=== PATIENT | female | born 1970 | race Caucasian/White ===

== ENCOUNTER 2023-04-29 15:29 | Outpatient (CLI) | payer OTHER, SELFPAY ==
--- NOTE | 2023-05-02 15:45 | WPDHOLTEREM ---
Holter/Event Monitor Holter/Event Monitor Date of procedure: 04/29/23 Holter/Event Procedure: 48 Hr Holter Monitor Indications: Palpitations Conclusion: 1. 48 hour holter monitored on 04/29/23. 2. Underlying rhythm is sinus rhythm. HR range 46-117 bpm; average HR 68 bpm. 3. There are 51 premature supraventricular complexes and 1 supraventricular couplet. No supraventricular tachycardia. 4. There are 6 premature ventricular complexes. No ventricular tachycardia. 5. No sinoatrial or atrioventricular blocks. No significant pauses greater than 2 seconds. 6. Patient reports symptoms of palpitations, headache, funny feeling in chest which demonstrate sinus rhythm, HR range 53-90 bpm.
== END 2023-04-29 15:30 | disposition home or self-care (01) ==
DX: R00.2 Palpitations (principal)
CPT/HCPCS: 93225; 93226

== ENCOUNTER 2024-12-03 01:47 | Day surgery (SDC) | payer OTHER, SELFPAY ==
[2024-11-23 13:27] VITALS: BMI 25.6
--- OUTSIDE RECORDS SUMMARY | 2024-12-03 01:50 | XMS_ITS | Encounter Summary ---
Author Organization [facility] Address [address] [place] [address] Care Team Providers Care Demi Chef Name Role Phone Unavailable Primary Care Provider Unavailabl e Encounter Details Date Type Department Care Team (Late st Contact Info) Description 04/26/2023 Lab Requisition [facility] - DermPath Lab [address] [facility], [place] [address] Ericka Claire DO [address] [facility] 3 [place] [address] Social History Tobacco Use Types Packs/Day Years Used Date Smoking Tobacco: Never Assessed Comments Unknown Sex and Gender Information Value Date Recorded Sex Assigned at Not on file 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 Gender Identity Not on file Sexual Orientation Not on file documented as of this encounter Plan of Treatment Not on file documented as of this encounter Procedures Procedure Name Priority Date/Time Associated Diagnosis Comments DERMATOPATHOLOGY Routine 04/26/2023 2:28 PM CDT documented in this encounter Results * DERMATOPATHOLOGY (04/26/2023 2:28 PM CDT) Case Report Dermatopathology Report Case: [id number] Authorizing Provider: Ericka Claire DO Collected: 04/26/2023 02:28 PM Ordering Location: [facility] DermPath Lab Received: 04/27/2023 11:53 AM Pathologist: Susanne Richardson MD Specimen: Skin, right nose 11:32 AM CDT DERMATOPATHOLOGY LABORATORY Final Diagnosis Specimen A. SKIN, right nose: BASAL CELL CARCINOMA, NODULAR TYPE (C44.311) 11:32 AM CDT DERMATOPATHOLOGY LABORATORY at 1132 CDT Clinical History R/O BCC< SCC, [place] 11:32 AM CDT DERMATOPATHOLOGY LABORATORY Gross Description Specimen A: Received is one formalin filled container labeled with the patient's name and designated right nose. The specimen consists of a shave biopsy measuring 3x3x1 mm. Jar 0. 11:32 AM T DERMATOPATHOLOGY LABORATORY Microscopic Description Specimen A. SKIN, right nose: Within the dermis there are aggregates of basaloid cells with a high nuclear to cytoplasmic ratio and peripheral palisading. 11:32 AM T DERMATOPATHOLOGY LABORATORY Disclaimer An external and internal positive and negative controls are appropriate for the histochemical, immunohistochemical and immunofluorescence stain(s) in this case (if any), except where stated explicitly. The performance characteristics of the stain(s) cited in this report were developed and its performance characteristic determined by the Dermatopathology Laboratory at [facility], directed by Dr. Clement Kasper. These tests need not be, and therefore are not, approved by the [place] Food and Drug Administration. The tests are used for clinical purposes. Billing Codes Specimen Charges Stain Charges 21308 1 11:32 AM CDT DERMATOPATHOLOGY LABORATORY Embedded Images 11:32 AM CDT DERMATOPATHOLOGY LABORATORY Pathology/Cytolo gy TISSUE SPECIMEN FROM SKIN / Unknown 04/26/2023 2:28 PM CDT 04/27/2023 11:53 AM CDT us Ericka Claire DO LAB - PATHOLOGY/CYTOLOGY ORDERABLES Final Result DERMATOPATHOLOGY LABORATORY [facility] - Department of Dermatology [address], [address] [phone] documented in this encounter Visit Diagnoses Not on filedocumented in this encounter
--- OUTSIDE RECORDS SUMMARY | 2024-12-03 01:50 | XMS_ITS | Clinical Summary ---
Author Organization [facility] [employer] Address [address] [facility] [place] [address] Care Team Providers Care College And Career Counselor Name Role Phone Unavailable Primary Care Provider Unavailabl e Source Comments [facility] [employer],non-owned Affiliates and Associated Physician Practices is amultiple site organization consisting of ambulatory clinics and hospital sitesin [place], [place], [place] and [place]. This disclosure is being madepursuant to the Care Everywhere program and may not contain all information available regarding this patient. 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 Gender Identity Not on file Sexual Orientation Not on file Plan of Treatment Health Maintenance Due Date Last Done Comments COLOGUARD (AGES 45-75) - COL ON CA SCREENING 1972 COLON MONITORING 1972 COLONOSCOPY - COLON CA SCREENING 1972 CT COLONOGRAPHY - COLON CA SCREENING 1972 Colorectal Cancer Screening 1972 FIT - COLON CA SCREENING 1972 FLEX SIG - COLON CA SCREENING 1972 LIPID TESTING 1972 MAMMOGRAM 1972 PAP SMEAR 1972 HIV SCREENING 1987 HEPATITIS C SCREENING 07/15/1990 DTAP/TDAP/TD VACCINES (1 - Tdap) 1991 HEPATITIS B VACCINE (1 of 3 - 19+ 3-dose series) 1991 PNEUMOCOCCAL VACCINE 50+ (1 of 1 - PCV) 2022 ZOSTER VACCINE (1 of 2) 2022 COVID-19 VACCINE ( - 2023-2 5 season) 2024 DEPRESSION SCREENING 07/04/2024 INFLUENZA VACCINE (Season Ended) 2025 HIB VACCINE Aged Out No longer eligi ble based on patient's age to complete this topic HPV VACCINE Aged Out No longer eligi ble based on patient's age to complete this topic MENINGOCOCCAL (Group B) VACC INE SHARED DECISION-MAKING Aged Out No longer eligibl e based on patient's age to complete this topic MENINGOCOCCAL GROUPS A/C/Y/W VACCINE Aged Out No longer eligible b ased on patient's age to complete this topic Insurance Member Subscriber Plan / Payer (Ef fective 2018-Present) Name:Vinicius Brown Relation to Subscriber:Self Name:VINICIUS BROWN Payer ID:[id number] (NAIC) Type:[employer] Address: [place] [id number] [place] [id number] [facility] [place] [phone]
--- OUTSIDE RECORDS SUMMARY | 2024-12-03 01:50 | XMS_ITS | Encounter Summary ---
Author Organization [facility] Address [address] [facility] [place] [address] Care Team Providers Care Print Developer Name Role Phone Unavailable Primary Care Provider Unavailabl e Encounter Details Date Type Department Care Team (Late st Contact Info) Description 06/13/2019 Lab Requisition [facility] DermPath Lab [address] 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 Gender Identity Not on file Sexual Orientation Not on file documented as of this encounter Plan of Treatment Not on file documented as of this encounter Procedures Procedure Name Priority Date/Time Associated Diagnosis Comments DERMATOPATHOLOGY Routine 06/12/2019 12:0 0 AM TUBE WORKER documented in this encounter Results * DERMATOPATHOLOGY (06/12/2019 12:00 AM TUBE WORKER) Case Report Dermatopathology Report Case: [id number] Authorizing Provider: Travon Gaines MD Collected: 06/12/2019 12:00 AM Ordering Location: [facility] DermPath Lab Received: 06/13/2019 11:32 AM Pathologist: Cris Kasper MD Specimens: A) - Skin, mid abdomen B) - Skin, left lower pretibia 9 5:17 PM TUBE WORKER DERMATOPATHOLOGY LABORATORY Final Diagnosis Specimen A. SKIN, mid abdomen: LENTIGINOUS MELANOCYTIC NEVUS, COMPOUND TYPE, IRRITATED AND INFLAMED (COMPOUND MELANOCYTIC NEVUS WITH ARCHITECTURAL DISORDER) (D22.5) Specimen B. SKIN, left lower pretibia: BENIGN VERRUCOUS KERATOSIS, INFLAMED (L82.1) 9 5:17 PM [facility] DERMATOPATHOLOGY LABORATORY at [address] [facility] Clinical History A-B: R/O dys nevus. 9 5:17 PM [facility] DERMATOPATHOLOGY LABORATORY Gross Description Specimen A: Received is one formalin filled container labeled with the patient's name and designated mid abdomen. The specimen consists of a shave biopsy measuring [id number]. Jar 0. Specimen B: Received is one formalin filled container labeled with the patient's name and designated left lower pretibia. The specimen consists of a shave biopsy measuring [id number]. Jar 0. 5:17 PM [facility] DERMATOPATHOLOGY LABORATORY Microscopic Description Specimen A. SKIN, mid abdomen: This is a compound nevus. There is melanin pigment in the stratum corneum. There is architectural disorder characterized by a lentiginous proliferation of melanocytes between irregular nests of cells along the dermal-epidermal junction, highlighted by MART-1/Melan-A immunohistochemical staining. There is underlying fibroplasia of the papillary dermis. The intradermal component is bland appearance and matures with depth. There is a lymphohistiocytic infiltrate within the dermis. Original and deeper sections were reviewed. (Compound Danny's Nevus or Compound Dysplastic Nevus) Specimen B. SKIN, left lower pretibia: Sections show hyperkeratosis, papillomatosis, hypergranulosis, and acanthosis. Inflammatory cells are present within the dermis. These histological findings can be seen in a verruca vulgaris or a seborrheic keratosis. 5:17 PM [facility] DERMATOPATHOLOGY LABORATORY Disclaimer An external and internal positive and negative controls are appropriate for the histochemical, immunohistochemical and immunofluorescence stain(s) in this case (if any), except where stated explicitly. The performance characteristics of the stain(s) cited in this report were developed and its performance characteristic determined by the Dermatopathology Laboratory at [facility], directed by Dr. Clement Kasper. These tests need not be, and therefore are not, approved by the [place] Food and Drug Administration. The tests are used for clinical purposes. Billing Codes Specimen Charges Stain Charges 58143 53393 1 1 95350 1 9 5:17 PM [facility] DERMATOPATHOLOGY LABORATORY Embedded Images 12/13/201 9 5:17 PM TUBE WORKER DERMATOPATHOLOGY LABORATORY Pathology/Cytology TISSUE SPECIMEN FROM SKIN / Unknown 06/12/2019 06/13/2019 11:32 AM TUBE WORKER Miscellaneous samples (specimen) TISSUE SPECIMEN FROM SKIN / Unknown 06/12/2019 06/13/2019 11:32 AM TUBE WORKER us Travon Gaines MD LAB - PATHOLOGY/CYTOLOGY ORD ERABLES Final Result DERMATOPATHOLOGY LABORATORY [facility] - Department of Dermatology [address] [place] [address], 5th Floor Lab [address] [phone] documented in this encounter Visit Diagnoses Not on filedocumented in this encounter
--- OUTSIDE RECORDS SUMMARY | 2024-12-03 01:50 | XMS_ITS | Encounter Summary ---
Author Organization [facility] Address [address] [place] [address] Phone Care Team Providers Care Production Team Leader Name Role Phone Long Beard MD Unavailable Shrala Robertson DO Unavailable [phone] Mamie Broussard MD Unavailable [phone] Michael Mercado DO Unavailable [phone] Travon Gaines MD Unavailable [phone] Alida HOPKINS MD, Lebron Patino Unavailable Delia Lu NP Primary Care Provider [phone] Encounter Details Date Type Department Care Team (Latest Contact Info) Description 12/13/2023 Orders Only [facility]/WRIST Scanning, Provider Social History Tobacco Use Types Packs/Day Years Used Date Smoking Tobacco: Never Passive Smoke Exposure: Never Smokeless Tobacco: Never Alcohol Use Standard Drinks/Week Comments Yes 0 (1 standard drink = 0.6 oz pur e alcohol) PHQ-2 Answer Date Recorded PHQ-2 Total Score (If total score is 3 or more points, staff should administer the PHQ-9) 0 11/11/2021 Personal Safety Answer Date Recorded Have you ever been in or are you currently in a harmful physical or emotional relationship or is someone making you feel afraid or unsafe? 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 Not on file Not on file documented as of this encounter Plan of Treatment Not on file documented as of this encounter Procedures Procedure Name Priority Date/Time Associated Diagnosis Comments SCAN - RADIOLOGY/IMAGING 12/13/2023 documented in this encounter Results * SCAN - RADIOLOGY/IMAGING (12/13/2023) Anatomical Region Laterality Modality Other us Provider Scanning Edited Result - Final documented in this encounter Visit Diagnoses Not on filedocumented in this encounter Care Teams Production Team Leader Relationship Specialty Start Date End Date Delia Lu NP [address] [place] [address] PCP - General Family Medicine 05/18/23 Long Beard MD [address] [facility] [address] [place] [address] Referring Physician Cardiovascular Disease 02/06/18 Sharla Robertson DO [address] [place] [address] Consulting Physician Obstetrics and Gynecology 02/06/18 Mamie [place] [id number] [place] [address] Consulting Physician Gastroenterology 02/06/18 Michael Mercado DO [address] [place] [address] Referring Physician Optometry 02/06/18 Travon Gaines MD [address] [place] [address] Referring Physician Dermatology 02/06/18 Lebron Irwin IV, MD [address] [place] [address] Surgeon Orthopedic Surgery 06/23/20 documented as of this encounter
--- OUTSIDE RECORDS SUMMARY | 2024-12-03 01:50 | XMS_ITS | Encounter Summary ---
Author Organization [facility] Address [address] [place] [address] Care Team Providers Care Cutter Out Name Role Phone Long Beard MD Unavailable [phone] Sharla Robertson DO Unavailable [phone] Mamie Broussard MD Unavailable [phone] Michael Mercado DO Unavailable [phone] Travon Gaines MD Unavailable [phone] Alida HOPKINS MD, Lebron Patino Unavailable Delia Lu NP Primary Care Provider [phone] Encounter Details Date Type Department Care Team (Late st Contact Info) Description 11/02/2024 Telephone [facility] [address] [place] [address] Kenia Grayson, RT Social History Tobacco Use Types Packs/Day Years Used Date Smoking Tobacco: Never Passive Smoke Exposure: Never Smokeless Tobacco: Never Alcohol Use Standard Drinks/Week Comments Yes 0 (1 standard drink = 0.6 oz pur e alcohol) AUDIT-C Answer Date Recorded Frequency of Alcohol Consumption Not on file 03/19/2024 Q2: How many drinks containi ng alcohol do you have on a typical day when you are drinking? Patient does not drink Frequency of Binge Drinking Not on file 03/04 PHQ-2 Answer Date Recorded PHQ-2 Total Score (If total score is 3 or more points, staff should administer the PHQ-9) 0 11/11/2021 Personal Safety Answer Date Recorded Have you ever been in or are you currently in a harmful physical or emotional relationship or is someone making you feel afraid or unsafe? 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 Not on file documented as of this encounter Plan of Treatment Not on file documented as of this encounter Visit Diagnoses Not on filedocumented in this encounter Care Teams Cutter Out Relationship Specialty Start Date End Date Delia Lu NP [address] [place] [address] [address] [facility] [address] [place] [address] PCP - General Family Medicine 05/18/23 Long Beard MD [address] [place] [address] [address] [place] [address] Referring Physician Cardiovascular Disease 02/06/18 Sharla Robertson DO [address] [place] [id number] Consulting Physician Obstetrics and Gynecology 02/06/18 Mamie Broussard [place] [address] [place] [address] Consulting Physician Gastroenterology 02/06/18 Michael Mercado DO [address] [place] [place] [address] Referring Physician Optometry 02/06/18 Travon Gaines MD [address] [place] [address] Referring Physician Dermatology 02/06/18 Lebron Irwin IV, MD [address] [place] [address] Surgeon Orthopedic Surgery 06/23/20 documented as of this encounter
--- OUTSIDE RECORDS SUMMARY | 2024-12-03 01:50 | XMS_ITS | Continuity of Care Document ---
Author Organization [facility] Address [address] [facility] [address] [place] [address] Phone Care Team Providers Care Pathology Secretary Name Role Phone No Information Unavailable Unavailable Procedures Procedure Date Therapeutic Activities Neuromuscular Re-Ed Therapeutic Exercise Manual Therapy Therapeutic Activities Neuromuscular Re-Ed Manual Therapy Therapeutic Activities Therapeutic Exercise Neuromuscular Re-Ed Therapeutic Activities Therapeutic Exercise Neuromuscular Re-Ed Neuromuscular Re-Ed Progress Note Therapeutic Activities Therapeutic Exercise Therapeutic Activities Therapeutic Exercise Manual Therapy Neuromuscular Re-Ed Therapeutic Activities Therapeutic Exercise Neuromuscular Re-Ed Manual Therapy Therapeutic Activities Manual Therapy Therapeutic Exercise Neuromuscular Re-Ed Therapeutic Activities Therapeutic Exercise Manual Therapy Therapeutic Activities Therapeutic Exercise Neuromuscular Re-Ed Manual Therapy PT Evaluation Moderate Complexity Neuromuscular Re-Ed Therapeutic Activities Advance Directives Directive Yes / No Effective Date File Name No Information Encounters Encounter Description Practice Location Reason(s) For Visit Diagnoses Date Provider Providers Copied on Encounter [facility] [address], [id number], tel:[phone] No Information 4 No Information [facility] [address], [id number], tel:[phone] [place] No Information 1 2 Garrels Ksenia. . Referring Provider: Jacques Song, [address], [place], [place], [address]. tel:[phone] [facility], [id number], tel:[phone] [place] No Information 0 2 Garrels Ksenia. . Referring Provider: Jacques Song, [address], [place], [place], [address]. tel:[phone] [facility] [address], [id number], tel:[phone] [place] No Information Sep0 2 Garrels Ksenia. . Referring Provider: Jacques Song, [address], [place], [address]. tel:[phone] [facility], [id number], tel:[phone] [place] No Information 2 Garrels Ksenia. . Referring Provider: Jacques Song, [address], [place], [address]. tel:[phone] [facility], [id number], tel:[phone] [place] No Information 2 Garrels Ksenia. . Referring Provider: Jacques Song, [address], [place], [address]. tel:[phone] [facility] [facility] [place], [place], [id number], [place] tel:[phone] [place] No Information 2 Nunu Howe. [address] [facility], [address], [place], [address], [place]. tel:[phone] Referring Provider: Jacques Song, [address], [place], [address]. tel:[phone] [facility] [facility] [place], [place], [id number], [place] tel:[phone] [place] No Information 2 Garrels Ksenia. . Referring Provider: Jacques Song, [address], [place], [address]. tel:[phone] [facility] [facility], [place], [place], [id number], [place] tel:[phone] [place] No Information 2 Garrels Ksenia. . Referring Provider: Jacques Song, [address], [place], [address]. tel:[phone] [facility], [place], [place], [id number], [place] tel:[phone] [place] No Information 2 Garrels Ksenia. . Referring Provider: Jacques Song, [address], [place], [address]. tel:[phone] [facility] [facility] [address], [place], [place], [id number], [place] tel:[phone] [place] No Information 2 Garrels Ksenia. . Referring Provider: Jacques Song, [address], [place], [address]. tel:[phone] [facility] [place], [address] [facility] [address], [place], [place], [id number], tel:[phone] [place] No Information 2 Garrels Ksenia. . Referring Provider: Jacques Song, [address], [place], [address]. tel:[phone] Family History Family Member Type Diagnosis Age At Onset No Information Payers Payer name Insurance type Covered green party ID Authorbridgettea ayaz(s) [facility] [id number] Social History Type Description Quantity Date Captured Comments Sex Female Smoking Status No Information Chief Complaint And Reason For Visit No Information Reason For Referral Reason For Referral No Information History Of Present Illness Encounter Date Complaint History Of Prese nt Illness No Information Functional Status Date Functional Assessmen t No Information Instructions Date Instruction Additional Infor mation No Information Assessments Type Assessment Date No Information Patient Care Teams Name Effective Dates (start - stop) Status Members No Information
--- OUTSIDE RECORDS SUMMARY | 2024-12-03 01:50 | XMS_ITS | Data Portability ---
Author Organization [facility] JORJEEiatn Address [address] [place] [address] Assessment No assessment recorded. Plan of Treatment Reminders Order Date Submit Date Provider Last Modified By Organization Details Last Modified Time Details Appointments None opal noe Lab CBC w/ auto diff 2024 025 [facility], [address] [place] [address] [address], [address], [place], [address], 5 03:36:52 CMP, serum or plasma 2024 025 [facility], [address] [facility], [address], [place], [address], 5 03:36:46 lipid panel, serum 2024 025 [facility], [address] [facility], [address], [place], [address], 5 03:36:45 HbA1c (hemogl obin A1c), blood 2024 025 [facility], [address] [facility], [address], [place], [address], 5 03:36:49 vitamin D, 25-hydr oxy, total, serum 2024 025 [facility], [address] [facility], [address], [place], [address], 5 03:36:54 TSH + free T4, serum 2024 025 [facility], [address] [facility] [address], [address], [place], [address], 5 03:36:44 urinaly sis, complet e 2024 025 [facility], [address] [place], [place] [address], [address], [place], [address], 5 03:36:50 TSH, ultra-s ensitiv e, serum 2024 025 [facility], [address] [facility] [address], [address], [place], [address], 5 03:36:48 culture , urine 2024 025 [facility], [address] [place] [address] [address], [address], [place], [address], 5 03:36:53 Hepatit is C IgG Ab, qual, serum 2024 025 [facility], [address] [facility] [address], [address], [place], [address], 5 03:36:43 culture , urine 2023 024 [facility], [address] [facility] [address], [address], [place], [address], 4 06:20:09 urinaly sis, dipstic k 2023 024 In-Office Order, Internal Use Only DO Not Attach Compendium DO Not Attach Compendium, Do Not Delete/merge, [id number] 4 12:28:06 rf (rheuma toid factor) , serum 2022 [facility], [address], [address], [place], [address], 11:17:32 C reactiv e protein , QN, serum or plasma 2022 [facility], [address], [address], [place], [address], 11:17:32 erythro cyte sedimen tation rate by westerg heidi method 2022 [facility], [address], [address], [place], [address], 11:17:31 PETROS (antinu clear antibod ies) screen, serum 2022 [facility], [address], [address], [place], [address], 11:17:27 magnesi um, serum or plasma 2022 [facility], [address], [address], [place], [address], 11:17:30 TSH + free T4, serum 2022 [facility], [address], [address], [place], [address], 11:17:28 CMP, serum or plasma 2022 [facility], [address], [address], [place], [address], 11:17:29 CBC w/ auto diff 2022 023 [facility], [address] [facility], [place], [address], 3 11:17:31 lipid panel, serum 2022 023 [facility], [address] [facility] [address], [place], [address], 3 11:17:28 T3, free, serum or plasma 2022 023 [facility], [address] [facility] [address], [place], [address], 11:17:33 urinaly sis, dipstic k 2022 023 [facility] In-Office Order, Internal Use Only DO Not Attach Compendium DO Not Attach Compendium, Do Not Delete/merge, [id number] 13:44:40 vitamin B12 + folate, serum or blood 2022 023 [facility], [address] [facility] [address], [address], [place], [address], 11:17:[address] Referral physica l therapi st referra l - Please call pt to nancy okeefe ent, Thank you 2022 023 [facility], [address], [place], [address], 4 11:30:49 cardiol ogist referra l - Please call pt to nancy quintero ment, Thank you 2022 023 [facility], [address] , [place], [address], 3 11:55:23 neurolo gist referra l - Please call pt to bin quan, Thank you 2022 023 [facility], [address], [place], [address], 3 15:18:46 Procedures None recorde d. Surgeries None recorde d. Imaging DEXA - family history osteopo rosis and total hystere ctomy 2024 025 [facility], [address] [facility] , [place], [address], 5 13:45:33 holter monitor 2022 023 [facility] ([facility]iology [facility]), [address], [place], [address], 4 17:17:19 MRI, brain, w/o contras t 2022 023 [facility], [address], [place], [address], 3 13:14:56 Medication Orders None recorde d. Patient TargetsNo targets recorded. Patient Instructions Encounter Date Encounter Id Patient Instructions Last Modified By Organization Details Last Modified Time 04/28/2023 [id number] palpitations: care instructions Not available 05/02/2023 10:10:46 05/12/2023 [id number] vertigo: care instructions Not available 05/12/2023 13:30:43 palpitations: care instructions Not available 05/12/2023 13:30:43 numbness and tingling: care instructions Not available 05/12/2023 13:30:43 09/13/2024 [id number] A healthy lifestyle: care instructions Not available 10/04/2024 13:13:15 Reason for Referral Analytical Scientist Referral for Pa lpitations Please call pt to schedule appointment, Thank you Referring Physician: Delia Richardson, Family Medicine, Encounter Date: 05/12/2023 Neurologist Referral for Par esthesia Please call pt to schedule appointment, Thank you Referring Physician: Delia Richardson [facility], Encounter Date: 05/12/2023 Physical Therapist Referral for Vertigo Please call pt to schedule appontment, Thank you Referring Physician: Delia Richardson [facility], Encounter Date: 05/12/2023 Results Created Date Observation Date Name Description Value Unit Range Abnormal Flag Note LastModifiedBy Organization Detail LastModifiedTime 04/28/2004/28/2023 urina lysis , dipst ick Leukocytes Negati ve Not Available In-Office Order Internal Use Only DO Not Attach Compendium DO Not Attach Compendium, Do Not Delete/merge, [id number] 04/28/2023 13:33:05 04/28/2004/28/2023 urina lysis , dipst ick Nitrite negati ve Not Available In-Office Order Internal Use Only DO Not Attach Compendium DO Not Attach Compendium, Do Not Delete/merge, [id number] 04/28/2023 13:33:05 04/28/2004/28/2023 urina lysis , dipst ick Urobilinogen .2 Not Available In-Of fice Order Internal Use Only DO Not Attach Compendium DO Not Attach Compendium, Do Not Delete/merge, [id number] 04/28/2023 13:33:05 04/28/2004/28/2023 urina lysis , dipst ick Protein Negati ve Not Available In-Office Order Internal Use Only DO Not Attach Compendium DO Not Attach Compendium, Do Not Delete/merge, [id number] 04/28/2023 13:33:05 04/28/2004/28/2023 urina lysis , dipst ick pH 6.5 Not Available In-Office Order Internal Use Only DO Not Attach Compendium DO Not Attach Compendium, Do Not Delete/merge, [id number] 04/28/2023 13:33:05 04/28/20 23 04/28/2023 urina lysis , dipst ick Blood Large Not Available In-Office Order Internal Use Only DO Not Attach Compendium DO Not Attach Compendium, Do Not Delete/merge, [id number] 04/28/2023 13:33:05 04/28/2004/28/2023 urina lysis , dipst ick Specific [place] 1.020 Not Available In-Off ice Order Internal Use Only DO Not Attach Compendium DO Not Attach Compendium, Do Not Delete/merge, [id number] 04/28/2023 13:33:05 04/28/2004/28/2023 urina lysis , dipst ick Ketone Negati ve Not Available In-Office Order Internal Use Only DO Not Attach Compendium DO Not Attach Compendium, Do Not Delete/merge, [id number] 04/28/2023 13:33:05 04/28/2004/28/2023 urina lysis , dipst ick Bilirubin Negati ve Not Available In-Office Order Internal Use Only DO Not Attach Compendium DO Not Attach Compendium, Do Not Delete/merge, [id number] 04/28/2023 13:33:05 04/28/2004/28/2023 urina lysis , dipst ick Glucose Negati ve Not Available In-Office Order Internal Use Only DO Not Attach Compendium DO Not Attach Compendium, Do Not Delete/merge, [id number] 04/28/2023 13:33:05 04/28/2004/28/2023 urina lysis , dipst ick Appearance Clear Not Available In-Offi ce Order Internal Use Only DO Not Attach Compendium DO Not Attach Compendium, Do Not Delete/merge, [id number] 04/28/2023 13:33:05 04/28/2004/28/2023 urina lysis , dipst ick Color Pale Yellow Not Available In-Office Order Internal Use Only DO Not Attach Compendium DO Not Attach Compendium, Do Not Delete/merge, [id number] 04/28/2023 13:33:05 05/05/2005/06/2023 ANTIN UCLEA R AB MULTI PLEX RFX 9 PETROS direct NEGATI VE negati ve Not Available [facility] ([facility]) [address] [facility], [place], [address], 05/06/2023 11:17:27 05/05/2005/06/2023 TSH+F REE T4 TSH 2.980 uIU/m L 0.450- 4.500 Not Available [facility] ([facility]) [address] [place], [address], 05/06/2023 11:17:27 05/05/20 23 05/06/2023 TSH+F REE T4 T4,free(dire ct) 1.09 NG/dL 0.82-1 .77 Not Available [facility] ([facility]) [address] [place], [address], 05/06/2023 11:17:27 05/05/20 23 05/06/2023 LIPID PANEL cholesterol, total 224 mg/dL 100-19 9 above high normal Not Available [facility] ([facility]) [address] [place], [address], 05/06/2023 11:17:28 05/05/20 23 05/06/2023 LIPID PANEL triglyceride s 82 mg/dL 0-149 Not Available [facility]) [address] [place], [address], 05/06/2023 11:17:28 05/05/20 23 05/06/2023 LIPID PANEL HDL cholesterol 74 mg/dL >39 Not Available [facility]) [address] [place], [address], 05/06/2023 11:17:28 05/05/20 23 05/06/2023 LIPID PANEL VLDL cholesterol mattie 14 mg/dL 5-40 Not Available [facility] ([facility]) [address] [place], [address], 05/06/2023 11:17:28 05/05/20 23 05/06/2023 LIPID PANEL LDL chol calc ([facility]) 136 mg/dL 0-99 above high normal Not Available [facility] ([facility]) [address] [place], [address], 05/06/2023 11:17:28 05/05/20 23 05/06/2023 COMP. METAB OLIC PANEL (14) glucose 77 mg/dL 70-99 Not Available [facility] ([facility]) [address] [place], [address], 05/06/2023 11:17:29 05/05/20 23 05/06/2023 COMP. METAB OLIC PANEL (14) BUN 18 mg/dL 6-24 Not Available [facility] ([facility]) [address] [place], [address], 05/06/2023 11:17:29 05/05/20 23 05/06/2023 COMP. METAB OLIC PANEL (14) creatinine 0.87 mg/dL 0.57-1 .00 Not Available [facility] ([facility]) [address] [place], [address], 05/06/2023 11:17:29 05/05/20 23 05/06/2023 COMP. METAB OLIC PANEL (14) eGFR 81 mL/mi n/1.7 3 >59 Not Available [facility] ([facility]) [address] [place], [address], 05/06/2023 11:17:29 05/05/20 23 05/06/2023 COMP. METAB OLIC PANEL (14) BUN/creatini ne ratio 21 9-23 Not Available [facility] ([facility]) [address] [place], [address], 05/06/2023 11:17:29 05/05/20 23 05/06/2023 COMP. METAB OLIC PANEL (14) sodium 140 mmol/ L 134-14 4 Not Available [facility] ([facility]) [address] [place], [address], 05/06/2023 11:17:29 05/05/20 23 05/06/2023 COMP. METAB OLIC PANEL (14) potassium 5.1 mmol/ L 3.5-5. 2 Not Available [facility] ([facility]) [address] [place], [address], 05/06/2023 11:17:29 05/05/20 23 05/06/2023 COMP. METAB OLIC PANEL (14) chloride 101 mmol/ L 96-106 Not Available [facility] ([facility]) [address] [place], [address], 05/06/2023 11:17:29 05/05/20 23 05/06/2023 COMP. METAB OLIC PANEL (14) carbon dioxide, total 24 mmol/ L Not Available [facility] ([facility]) [address] [place], [address], 05/06/2023 11:17:29 05/05/20 23 05/06/2023 COMP. METAB OLIC PANEL (14) calcium 9.6 mg/dL 8.7-10 .2 Not Available [facility] ([facility]) [address] [place], [address], 05/06/2023 11:17:29 05/05/20 23 05/06/2023 COMP. METAB OLIC PANEL (14) protein, total 7.8 g/dL 6.0-8. 5 Not Available [facility] ([facility]) [address] [facility] [place], [address], 05/06/2023 11:17:29 05/05/20 23 05/06/2023 COMP. METAB OLIC PANEL (14) albumin 5.0 g/dL 3.9-4. 9 above high normal Not Available [facility] ([facility]) [address] [facility] [place], [address], 05/06/2023 11:17:29 05/05/20 23 05/06/2023 COMP. METAB OLIC PANEL (14) globulin, total 2.8 g/dL 1.5-4. 5 Not Available [facility] ([facility]) [address] [facility], [place], [address], 05/06/2023 11:17:29 05/05/20 23 05/06/2023 COMP. METAB OLIC PANEL (14) A/G ratio 1.8 1.2-2. 2 Not Available [facility] ([facility]) [address] [facility], [place], [address], 05/06/2023 11:17:29 05/05/20 23 05/06/2023 COMP. METAB OLIC PANEL (14) bilirubin, total <0.2 mg/dL 0.0-1. 2 Not Available [facility] ([facility]) [address] [facility], [place], [address], 05/06/2023 11:17:29 05/05/20 23 05/06/2023 COMP. METAB OLIC PANEL (14) alkaline phosphatase 71 IU/L 44-121 Not Available [facility]) [address] [facility], [place], [address], 05/06/2023 11:17:29 05/05/20 23 05/06/2023 COMP. METAB OLIC PANEL (14) AST (SGOT) 15 IU/L 0-40 Not Available [facility] ([facility]) [address] [facility], [place], [address], 05/06/2023 11:17:29 05/05/20 23 05/06/2023 COMP. METAB OLIC PANEL (14) ALT (SGPT) 10 IU/L 0-32 Not Available [facility] ([facility]) [address] [facility], [place], [address], 05/06/2023 11:17:29 05/05/20 23 05/06/2023 VITAM IN B12 AND FOLAT E vitamin B12 536 pg/mL 232-12 45 Not Available [facility] ([facility]) [address] [facility], [place], [address], 05/06/2023 11:17:29 05/05/20 23 05/06/2023 VITAM IN B12 AND FOLAT E folate (folic acid), serum >20.0 NG/mL >3.0 A serum folat e raquel ntrat ion of less than 3.1 ng/mL is consi dered to repre sent clini mattie defic iency . Not Available [facility] ([facility]) [address] [facility], [place], [address], 05/06/2023 11:17:29 05/05/20 23 05/06/2023 MAGNE SIUM magnesium 2.1 mg/dL 1.6-2. 3 Not Available [facility] ([facility]) [address] [facility], [place], [address], 05/06/2023 11:17:30 05/05/20 23 05/06/2023 CBC WITH DIFFE RENTI AL/PL ATELE T WBC 7.0 x10e3 /uL 3.4-10 .8 Not Available [facility] ([facility]) [address] [facility], [place], [address], 05/06/2023 11:17:30 05/05/20 23 05/06/2023 CBC WITH DIFFE RENTI AL/PL ATELE T RBC 4.87 x10e6 /uL 3.77-5 .28 Not Available [facility] ([facility]) [address] [facility], [place], [address], 05/06/2023 11:17:30 05/05/20 23 05/06/2023 CBC WITH DIFFE RENTI AL/PL ATELE T hemoglobin 13.9 g/dL 11.1-1 5.9 Not Available [facility] ([facility]) [address] [facility], [place], [address], 05/06/2023 11:17:30 05/05/20 23 05/06/2023 CBC WITH DIFFE RENTI AL/PL ATELE T hematocrit 42.9 % 34.0-4 6.6 Not Available [facility] ([facility]) [address] [facility], [place], [address], 05/06/2023 11:17:30 05/05/20 23 05/06/2023 CBC WITH DIFFE RENTI AL/PL ATELE T MCV 88 fL 79-97 Not Available [facility] ([facility]) [address] [facility], [place], [address], 05/06/2023 11:17:30 05/05/20 23 05/06/2023 CBC WITH DIFFE RENTI AL/PL ATELE T MCH 28.5 pg 26.6-3 3.0 Not Available [facility] ([facility]) [address] [facility], [place], [address], 05/06/2023 11:17:30 05/05/20 23 05/06/2023 CBC WITH DIFFE RENTI AL/PL ATELE T MCHC 32.4 g/dL 31.5-3 5.7 Not Available [facility] ([facility]) [address] [facility], [place], [address], 05/06/2023 11:17:30 05/05/20 23 05/06/2023 CBC WITH DIFFE RENTI AL/PL ATELE T RDW 12.0 % 11.7-1 5.4 Not Available [facility] ([facility]) [address] [facility], [place], [address], 05/06/2023 11:17:30 05/05/20 23 05/06/2023 CBC WITH DIFFE RENTI AL/PL ATELE T platelets 217 x10e3 /uL 150-45 0 Not Available [facility] ([facility]) [address] [facility], [place], [address], 05/06/2023 11:17:30 05/05/20 23 05/06/2023 CBC WITH DIFFE RENTI AL/PL ATELE T neutrophils 67 % notest ab. Not Available [facility] ([facility]) [address] [facility], [place], [address], 05/06/2023 11:17:30 05/05/20 23 05/06/2023 CBC WITH DIFFE RENTI AL/PL ATELE T lymphs 23 % notest ab. Not Available [facility] ([facility]) [address] [facility], [place], [address], 05/06/2023 11:17:30 05/05/20 23 05/06/2023 CBC WITH DIFFE RENTI AL/PL ATELE T monocytes 8 % notest ab. Not Available [facility] ([facility]) [address] [place], [address], 05/06/2023 11:17:30 05/05/20 23 05/06/2023 CBC WITH DIFFE RENTI AL/PL ATELE T eos 1 % notest ab. Not Available [facility] ([facility]) [address] [facility], [place], [address], 05/06/2023 11:17:30 05/05/20 23 05/06/2023 CBC WITH DIFFE RENTI AL/PL ATELE T basos 1 % notest ab. Not Available [facility] ([facility]) [address] [place], [address], 05/06/2023 11:17:30 05/05/20 23 05/06/2023 CBC WITH DIFFE RENTI AL/PL ATELE T neutrophils (absolute) 4.7 x10e3 /uL 1.4-7. 0 Not Available [facility] ([facility]) [address] [place], [address], 05/06/2023 11:17:30 05/05/20 23 05/06/2023 CBC WITH DIFFE RENTI AL/PL ATELE T lymphs (absolute) 1.6 x10e3 /uL 0.7-3. 1 Not Available [facility] ([facility]) [address] [place], [address], 05/06/2023 11:17:30 05/05/20 23 05/06/2023 CBC WITH DIFFE RENTI AL/PL ATELE T monocytes(ab solute) 0.6 x10e3 /uL 0.1-0. 9 Not Available [facility] ([facility]) [address] [facility], [place], [address], 05/06/2023 11:17:30 05/05/20 23 05/06/2023 CBC WITH DIFFE RENTI AL/PL ATELE T eos (absolute) 0.1 x10e3 /uL 0.0-0. 4 Not Available [facility] ([facility]) [address] [facility], [place], [address], 05/06/2023 11:17:30 05/05/20 23 05/06/2023 CBC WITH DIFFE RENTI AL/PL ATELE T baso (absolute) 0.0 x10e3 /uL 0.0-0. 2 Not Available [facility] ([facility]) [address] [facility], [place], [address], 05/06/2023 11:17:30 05/05/20 23 05/06/2023 CBC WITH DIFFE RENTI AL/PL ATELE T immature granulocytes 0 % notest ab. Not Available [facility] ([facility]) [address] [facility], [place], [address], 05/06/2023 11:17:30 05/05/20 23 05/06/2023 CBC WITH DIFFE RENTI AL/PL ATELE T immature grans (abs) 0.0 x10e3 /uL 0.0-0. 1 Not Available [facility] ([facility]) [address] [place], [address], 05/06/2023 11:17:30 05/05/20 23 05/06/2023 SEDIM ENTAT ION RATE- LASHAUN RGREN sedimentatio n rate-westerg heidi 19 mm/HR 0-40 Not Available [facility] ([facility]) [address] [place], [address], 05/06/2023 11:17:31 05/05/2005/06/2023 RHEUM ATOID FACTO R (RF) rheumatoid factor (rf) <10.0 Not Available [facility]) [address] [facility], [place], [address], 05/06/2023 11:17:32 05/05/2005/06/2023 C-RENEE CTIVE PROTE IN, QUANT C-reactive protein, quant <1 mg/L 0-10 Not Available [facility] ([facility]) [address] [facility], [place], [address], 05/06/2023 11:17:32 05/05/2005/06/2023 TRIIO DOTHY JEREMY E (T3), FREE triiodothyro nine (T3), free 2.8 pg/mL 2.0-4. 4 Not Available [facility] ([facility]) [address] [place], [address], 05/06/2023 11:17:33 08/23/19 24 08/26/2023 UA WITH CULTU RE REFLE X specific gravity 1.020 1.005- 1.030 Not Available [facility] ([facility]) [address] [place], [address], 08/26/2023 11:14:22 08/23/19 24 08/26/2023 UA WITH CULTU RE REFLE X pH 7.0 5.0-7. 5 Not Available [facility] ([facility]) [address] [place], [address], 08/26/2023 11:14:22 08/23/19 24 08/26/2023 UA WITH CULTU RE REFLE X urine-color Yellow yellow Not Available [facility] ([facility]) [address] [place], [address], 08/26/2023 11:14:22 08/23/19 24 08/26/2023 UA WITH CULTU RE REFLE X appearance Clear clear Not Available [facility] ([facility]) [address] [facility], [place], [address], 08/26/2023 11:14:22 08/23/19 24 08/26/2023 UA WITH CULTU RE REFLE X WBC esterase Negati ve negati ve Not Available [facility] ([facility]) [address] [facility], [place], [address], 08/26/2023 11:14:22 08/23/19 24 08/26/2023 UA WITH CULTU RE REFLE X protein Negati ve negati ve/tra ce Not Available [facility] ([facility]) [address] [facility], [place], [address], 08/26/2023 11:14:22 08/23/19 24 08/26/2023 UA WITH CULTU RE REFLE X glucose Negati ve negati ve Not Available [facility] ([facility]) [address] [facility], [place], [address], 08/26/2023 11:14:22 08/23/19 24 08/26/2023 UA WITH CULTU RE REFLE X ketones Negati ve negati ve Not Available [facility] ([facility]) [address] [facility], [place], [address], 08/26/2023 11:14:22 08/23/19 24 08/26/2023 UA WITH CULTU RE REFLE X occult blood Negati ve negati ve Not Available [facility] ([facility]) [address] [facility], [place], [address], 08/26/2023 11:14:22 08/23/19 24 08/26/2023 UA WITH CULTU RE REFLE X bilirubin Negati ve negati ve Not Available [facility] ([facility]) [address] [facility], [place], [address], 08/26/2023 11:14:22 08/23/19 24 08/26/2023 UA WITH CULTU RE REFLE X urobilinogen ,semi-qn 0.2 mg/dL 0.2-1. 0 Not Available [facility] ([facility]) [address] [facility], [place], [address], 08/26/2023 11:14:22 08/23/19 24 08/26/2023 UA WITH CULTU RE REFLE X nitrite, urine Negati ve negati ve Not Available [facility] ([facility]) [address] [facility], [place], [address], 08/26/2023 11:14:22 08/23/19 24 08/26/2023 UA WITH CULTU RE REFLE X microscopic examination Commen t Micro scopi c not indic ated and not perfo rmed. Not Available [facility] ([facility]) [address] [facility], [place], [address], 08/26/2023 11:14:22 08/23/19 24 08/26/2023 UA WITH CULTU RE REFLE X urinalysis reflex Commen t This speci men will not refle x to a Urine Cultu re. Not Available [facility] ([facility]) [address] [facility], [place], [address], 08/26/2023 11:14:22 08/23/19 24 08/23/2023 urina lysis , dipst ick Leukocytes Negati ve Not Available In-Office Order Internal Use Only DO Not Attach Compendium DO Not Attach Compendium, Do Not Delete/merge, [id number] 08/23/2023 10:34:08 08/23/19 24 08/23/2023 urina lysis , dipst ick Nitrite negati ve Not Available In-Office Order Internal Use Only DO Not Attach Compendium DO Not Attach Compendium, Do Not Delete/merge, [id number] 08/23/2023 10:34:08 08/23/19 24 08/23/2023 urina lysis , dipst ick Urobilinogen .2 Not Available In-Of fice Order Internal Use Only DO Not Attach Compendium DO Not Attach Compendium, Do Not Delete/merge, 08/23/2023 10:34:08 08/23/19 24 08/23/2023 urina lysis , dipst ick Protein Negati ve Not Available In-Office Order Internal Use Only DO Not Attach Compendium DO Not Attach Compendium, Do Not Delete/merge, 08/23/2023 10:34:08 08/23/19 24 08/23/2023 urina lysis , dipst ick pH 7.5 Not Available In-Office Order Internal Use Only DO Not Attach Compendium DO Not Attach Compendium, Do Not Delete/merge, 08/23/2023 10:34:08 08/23/19 24 08/23/2023 urina lysis , dipst ick Blood Non-He molyze d: Trace Not Available In-Office Order Internal Use Only DO Not Attach Compendium DO Not Attach Compendium, Do Not Delete/merge, 08/23/2023 10:34:08 08/23/19 24 08/23/2023 urina lysis , dipst ick Specific [place] 1.010 Not Available In-Off ice Order Internal Use Only DO Not Attach Compendium DO Not Attach Compendium, Do Not Delete/merge, 08/23/2023 10:34:08 08/23/19 24 08/23/2023 urina lysis , dipst ick Ketone Negati ve Not Available In-Office Order Internal Use Only DO Not Attach Compendium DO Not Attach Compendium, Do Not Delete/merge, 08/23/2023 10:34:08 08/23/19 24 08/23/2023 urina lysis , dipst ick Bilirubin Negati ve Not Available In-Office Order Internal Use Only DO Not Attach Compendium DO Not Attach Compendium, Do Not Delete/merge, 08/23/2023 10:34:08 08/23/19 24 08/23/2023 urina lysis , dipst ick Glucose Negati ve Not Available In-Office Order Internal Use Only DO Not Attach Compendium DO Not Attach Compendium, Do Not Delete/merge, [id number] 08/23/2023 10:34:08 08/23/19 24 08/23/2023 urina lysis , dipst ick Appearance Slight ly Cloudy Not Available In-Office Order Internal Use Only DO Not Attach Compendium DO Not Attach Compendium, Do Not Delete/merge, [id number] 08/23/2023 10:34:08 08/23/19 24 08/23/2023 urina lysis , dipst ick Color Pale Yellow Not Available In-Office Order Internal Use Only DO Not Attach Compendium DO Not Attach Compendium, Do Not Delete/merge, 08/23/2023 10:34:08 09/14/19 24 09/16/2023 URINE CULTU RE,CO MPREH ENSIV E urine culture,comp rehensive Final report abnormal Not Available [facility] ([facility]) [address] [facility], [place], [address], 09/16/2023 08:22:59 09/14/1909/16/2023 URINE CULTU RE,CO MPREH ENSIV E result 1 Commen t abnormal Beta hemol ytic Strep tococ cus, group B 8,000 Colon ies/m L Penic illin and ampic illin are drugs of choic e for treat ment of beta- hemol ytic strep tococ mattie infec tions . Susce ptibi lity testi ng of penic illin s and other beta- lacta m agent s appro chris by the FDA for treat ment of beta- hemol ytic strep tococ mattie infec tions need not be perfo rmed routi jose becau se nonsu scept ible isola valdez are extre hali rare in any beta- hemol ytic strep tococ cus and have not been repor roland for Strep tococ cus pyoge sayda (grou p A). (CLSI ) Not Available [facility] ([facility]) [address] [facility], [place], [address], 09/16/2023 08:22:59 10/05/19 24 10/08/2023 URINE CULTU RE,CO MPREH ENSIV E urine culture,comp rehensive Final report Not Available [facility] ([facility]) [address] [facility], [place], [address], 10/08/2023 04:36:15 10/05/19 24 10/08/2023 URINE CULTU RE,CO MPREH ENSIV E result 1 Commen t No growt h in 36 - 48 hours . Not Available [facility] ([facility]) [address] [facility], [place], [address], 10/08/2023 04:36:15 04/19/2004/21/2024 URINE CULTU RE,CO MPREH ENSIV E urine culture,comp rehensive FINAL REPORT abnormal Not Available [facility] ([facility]) [address] [facility], [place], [address], 04/21/2024 06:20:09 04/19/2004/21/2024 URINE CULTU RE,CO MPREH ENSIV E result 1 COMMEN T abnormal Beta hemol ytic Strep tococ cus, group B 5,000 Colon ies/m L Penic illin and ampic illin are drugs of choic e for treat ment of beta- hemol ytic strep tococ mattei infec tions . Susce ptibi lity testi ng of penic illin s and other beta- lacta m agent s appro chris by the FDA for treat ment of beta- hemol ytic strep tococ mattie infec tions need not be perfo rmed routi jose becau se nonsu scept ible isola valdez are extre hali rare in any beta- hemol ytic strep tococ cus and have not been repor roland for Strep tococ cus pyoge sayda (grou p A). (CLSI ) Not Available [facility] ([facility]) [address] [facility], [place], [address], 04/21/2024 06:20:09 04/19/2004/21/2024 URINE CULTU RE,CO MPREH ENSIV E result 2 COMMEN T Mixed uroge nital vazquez 3,000 Colon ies/m L Not Available [facility] ([facility]) [address] [facility], [place], [address], 04/21/2024 06:20:09 04/19/20 24 04/19/2024 urina lysis , dipst ick Leukocytes Negati ve Not Available In-Office Order Internal Use Only DO Not Attach Compendium DO Not Attach Compendium, Do Not Delete/merge, [id number] 04/19/2024 12:27:36 04/19/20 24 04/19/2024 urina lysis , dipst ick Nitrite negati ve Not Available In-Office Order Internal Use Only DO Not Attach Compendium DO Not Attach Compendium, Do Not Delete/merge, [id number] 04/19/2024 12:27:36 04/19/20 24 04/19/2024 urina lysis , dipst ick Urobilinogen .2 Not Available In-Of fice Order Internal Use Only DO Not Attach Compendium DO Not Attach Compendium, Do Not Delete/merge, [id number] 04/19/2024 12:27:36 04/19/20 24 04/19/2024 urina lysis , dipst ick Protein Negati ve Not Available In-Office Order Internal Use Only DO Not Attach Compendium DO Not Attach Compendium, Do Not Delete/merge, [id number] 04/19/2024 12:27:36 04/19/20 24 04/19/2024 urina lysis , dipst ick pH 6.5 Not Available In-Office Order Internal Use Only DO Not Attach Compendium DO Not Attach Compendium, Do Not Delete/merge, [id number] 04/19/2024 12:27:36 04/19/20 24 04/19/2024 urina lysis , dipst ick Blood Hemoly zed: Trace Not Available In-Office Order Internal Use Only DO Not Attach Compendium DO Not Attach Compendium, Do Not Delete/merge, [id number] 04/19/2024 12:27:36 04/19/20 24 04/19/2024 urina lysis , dipst ick Specific [place] 1.025 Not Available In-Off ice Order Internal Use Only DO Not Attach Compendium DO Not Attach Compendium, Do Not Delete/merge, [id number] 04/19/2024 12:27:36 04/19/20 24 04/19/2024 urina lysis , dipst ick Ketone Modera te Not Available In-Office Order Internal Use Only DO Not Attach Compendium DO Not Attach Compendium, Do Not Delete/merge, [id number] 04/19/2024 12:27:36 04/19/20 24 04/19/2024 urina lysis , dipst ick Bilirubin Negati ve Not Available In-Office Order Internal Use Only DO Not Attach Compendium DO Not Attach Compendium, Do Not Delete/merge, [id number] 04/19/2024 12:27:36 04/19/20 24 04/19/2024 urina lysis , dipst ick Glucose Negati ve Not Available In-Office Order Internal Use Only DO Not Attach Compendium DO Not Attach Compendium, Do Not Delete/merge, [id number] 04/19/2024 12:27:36 04/19/20 24 04/19/2024 urina lysis , dipst ick Appearance Clear Not Available In-Offi ce Order Internal Use Only DO Not Attach Compendium DO Not Attach Compendium, Do Not Delete/merge, [id number] 04/19/2024 12:27:36 04/19/20 24 04/19/2024 urina lysis , dipst ick Color Dark Yellow Not Available In-Office Order Internal Use Only DO Not Attach Compendium DO Not Attach Compendium, Do Not Delete/merge, [id number] 04/19/2024 12:27:36 05/24/20 24 05/27/2024 URINE CULTU RE,CO MPREH ENSIV E urine culture,comp rehensive FINAL REPORT Not Available [facility] ([facility]) [address] [facility], [place], [address], 05/27/2024 07:34:54 05/24/20 24 05/27/2024 URINE CULTU RE,CO MPREH ENSIV E result 1 COMMEN T No growt h in 36 - 48 hours . Not Available [facility] ([facility]) [address] [facility], [place], [address], 05/27/2024 07:34:54 05/29/20 24 06/04/2024 Skin Patho logy biops y repor t pathology report.secti on heading Dermat opatho logy Report Case: [id number] Author izing Provid er: Ericka Claire DO Collec roland: 2023 03:08 PM Orderi ng Locati on: [facility] - Receiv ed: 2023 01:33 PM [facility]erm[facility] th Lab Pathol ogist: Zoe Medina MD Specim en: Skin, right lower forehe ad Case Repor t [place] [facility] y Repor t Case: [id number] Autho ana cristina nettles Provi abdoulaye: Hal Will DO Colle cted: 05/29 03:08 PM Order ing Locat ion: [facility] - Recei chris: 05/30 01:33 PM DermP ath Lab Patho logis t: Santosh Ardon MD Speci men: Skin, right lower foreh ead 06/04 12:18 PM [facility] Not Available Not Available 09/13/2024 14:45:24 05/29/20 24 06/04/2024 Skin Patho logy biops y repor t pathology report final diagnosis narrative Specim en A. SKIN, right lower forehe ad: HYPERP LASTIC (HYPER TROPHI C) ACTINI C KERATO SIS (L57.0 ) Final Diagn osis Speci men A. SKIN, right lower foreh ead: HYPER PLAST IC (HYPE RTROP HIC) ACTIN IC KERAT OSIS (L57. 0) 06/04 12:18 PM [facility] Elect ronic ally licha d by Santosh Ardon MD on 2023 at 12:18 PM Not Available Not Available 09/13/2024 14:45:24 11/26/06/04/2024 Skin Patho logy biops y repor t pathology report relevant history narrative R/o NMSC Clini mattie Histo ry R/o NMSC 06/04 12:18 PM [facility] Not Available Not Available 09/13/2024 14:45:24 05/29/20 24 06/04/2024 Skin Patho logy biops y repor t pathology report gross observation narrative Specim en A: Receiv ed is one formal in filled contai ner labele d with the patirosemarie t's name and design ated right lower forehe ad. The specim en consis ts of a shave biopsy measur ing 4x3x1 mm. Jar 0. Gross Descr iptio n Speci men A: Recei chris is one forma kathy fille d conta iner label ed with the patie nt's name and desig nated right lower foreh ead. The speci men consi sts of a shave biops y measu ring 4x3x1 mm. Jar 0. 06/04 12:18 PM [facility] Not Available Not Available 09/13/2024 14:45:24 05/29/20 24 06/04/2024 Skin Patho logy biops y repor t pathology report microscopic observation narrative other stain Specim en A. SKIN, right lower forehe ad: There is hyperk eratos is altern ating with parake ratosi s. There is epider mal hyperp lasia with disord erly matura tion of kerati nocyte s with nuclea r pleomo rphism confin ed to the lower half of the epider mis. Micro scopi c Descr iptio n Speci men A. SKIN, right lower foreh ead: There is hyper kerat osis alter natin g with parak erato sis. There is epide rmal hyper plasi a with disor santa matur ation of kerat inocy valdez with nucle ar pleom orphi sm confi frank to the lower half of the epide rmis. 06/04 12:18 PM [facility] Not Available Not Available 09/13/2024 14:45:24 05/29/20 24 06/04/2024 Skin Patho logy biops y repor t service comment An configuration management specialist al and internal review and audit compliance al positi ve and negati ve contro ls are approp riate for the histoc hemica l, immuno histoc hemica l and immuno fluore scence stain( s) in this case (if any), except where stated explic itly. The perfor tatyana charac terist ics of the stain( s) cited in this report were develo ped and its perfor tatyana charac terist ic determ ined by the Dermat opatho logy Lenora molina at [facility], direct ed by Dr. Clement Kasper . These tests need not be, and theref ore are not, approv ed by the [place] Food and Drug Admini strati on. The tests are used for clinic al purpos es. Myrtle g Codes Specim en Charge s Stain Charge s [id number] 1 Discl aimer An exter nal and inter nal posit geoff and negat geoff contr ols are appro priat e for the histo chemi mattie, immun ohist ochem ical and immun ofluo resce nce stain (s) in this case (if any), excep t where state d expli citly . The perfo rmanc e neil cteri stics of the stain (s) cited in this repor t were devel oped and its perfo rmanc e neil cteri stic deter mined by the [facility] at [facility] , direc roland by Dr. Clement Herrera. These tests need not be, and there fore are not, appro chris by the [facility] d [facility] Food and Drug Admin istra tion. The tests are used for clini mattie purpo ses. Michael ng Codes Speci [place] Charg [place] [id number] 1 06/04 12:18 PM [facility] Not Available Not Available 09/13/2024 14:45:24 05/29/20 24 06/04/2024 Skin Patho logy biops y repor t embedded images Embed ded Image s 06/04 12:18 PM [facility] Not Available Not Available 09/13/2024 14:45:24 09/14/19 25 09/14/2024 HCV ANTIB ELAYNE RFX TO QUANT PCR HCV Ab - Test not perfo rmed. No serum recei chris. Not Available [facility] ([facility]) [address] [facility], [place], [address], 09/26/2024 16:38:09 09/14/19 25 09/14/2024 TSH+F REE T4 TSH - uIU/m L Dupli finesse proce dure order ed. Not Available [facility] ([facility]) [address] [place], [address], 09/26/2024 16:38:11 09/14/19 25 09/26/2024 TSH+F REE T4 T4,free(dire ct) - Test not perfo rmed Not Available [facility] ([facility]) [address] [place], [address], 09/26/2024 16:38:11 09/14/19 25 09/14/2024 LIPID PANEL cholesterol, total - mg/dL Test not perfo rmed. No serum recei chris. Not Available [facility] ([facility]) [address] [place], [address], 09/26/2024 16:38:12 09/14/19 25 09/14/2024 LIPID PANEL triglyceride s - Test not perfo rmed Not Available [facility] ([facility]) [address] [place], [address], 09/26/2024 16:38:12 09/14/19 25 09/14/2024 LIPID PANEL HDL cholesterol - Test not perfo rmed Not Available [facility] ([facility]) [address] [place], [address], 09/26/2024 16:38:12 09/14/19 25 09/14/2024 LIPID PANEL VLDL cholesterol mattie TNP mg/dL Unabl e to calcu late resul t since non-n umeri c resul t obtai frank for compo nent test. Not Available [facility] ([facility]) [address] [facility], [place], [address], 09/26/2024 16:38:12 09/14/19 25 09/14/2024 COMP. METAB OLIC PANEL (14) glucose - mg/dL Test not perfo rmed. No serum recei chris. Not Available [facility] ([facility]) [address] [facility], [place], [address], 09/26/2024 16:38:13 09/14/19 25 09/14/2024 COMP. METAB OLIC PANEL (14) BUN - Test not perfo rmed Not Available [facility] ([facility]) [address] [facility], [place], [address], 09/26/2024 16:38:13 09/14/19 25 09/14/2024 COMP. METAB OLIC PANEL (14) creatinine - Test not perfo rmed Not Available [facility] ([facility]) [address] [facility], [place], [address], 09/26/2024 16:38:13 09/14/19 25 09/14/2024 COMP. METAB OLIC PANEL (14) sodium - Test not perfo rmed Not Available [facility] ([facility]) [address] [facility], [place], [address], 09/26/2024 16:38:13 09/14/19 25 09/14/2024 COMP. METAB OLIC PANEL (14) potassium - Test not perfo rmed Not Available [facility] ([facility]) [address] [facility], [place], [address], 09/26/2024 16:38:13 09/14/19 25 09/14/2024 COMP. METAB OLIC PANEL (14) chloride - Test not perfo rmed Not Available [facility] ([facility]) [address] [place], [address], 09/26/2024 16:38:13 09/14/19 25 09/14/2024 COMP. METAB OLIC PANEL (14) carbon dioxide, total - Test not perfo rmed Not Available [facility] ([facility]) [address] [facility], [place], [address], 09/26/2024 16:38:13 09/14/19 25 09/14/2024 COMP. METAB OLIC PANEL (14) calcium - Test not perfo rmed Not Available [facility] ([facility]) [address] [facility], [place], [address], 09/26/2024 16:38:13 09/14/19 25 09/14/2024 COMP. METAB OLIC PANEL (14) protein, total - Test not perfo rmed Not Available [facility] ([facility]) [address] [place], [address], 09/26/2024 16:38:13 09/14/19 25 09/14/2024 COMP. METAB OLIC PANEL (14) albumin - Test not perfo rmed Not Available [facility] ([facility]) [address] [place], [address], 09/26/2024 16:38:13 09/14/19 25 09/14/2024 COMP. METAB OLIC PANEL (14) bilirubin, total - Test not perfo rmed Not Available [facility] ([facility]) [address] [place], [address], 09/26/2024 16:38:13 09/14/19 25 09/14/2024 COMP. METAB OLIC PANEL (14) alkaline phosphatase - Test not perfo rmed Not Available [facility] ([facility]) [address] [place], [address], 09/26/2024 16:38:13 09/14/19 25 09/14/2024 COMP. METAB OLIC PANEL (14) AST (SGOT) - Test not perfo rmed Not Available [facility] ([facility]) [address] [facility], [place], [address], 09/26/2024 16:38:13 09/14/19 25 09/14/2024 COMP. METAB OLIC PANEL (14) ALT (SGPT) - Test not perfo rmed Not Available [facility] ([facility]) [address] [facility], [place], [address], 09/26/2024 16:38:13 09/14/19 25 09/14/2024 MICRO SCOPI C EXAMI NATIO N WBC None seen /hpf 0-5 Not Available [facility] ([facility]) [address] [facility], [place], [address], 09/26/2024 16:38:15 09/14/19 25 09/14/2024 MICRO SCOPI C EXAMI NATIO N RBC None seen /hpf 0-2 Not Available [facility] ([facility]) [address] [facility], [place], [address], 09/26/2024 16:38:15 09/14/19 25 09/14/2024 MICRO SCOPI C EXAMI NATIO N epithelial cells (non renal) None seen /hpf 0-10 Not Available [facility] ([facility]) [address] [facility], [place], [address], 09/26/2024 16:38:15 09/14/19 25 09/14/2024 MICRO SCOPI C EXAMI NATIO N casts None seen /lpf nonese en Not Available [facility] ([facility]) [address] [facility], [place], [address], 09/26/2024 16:38:15 09/14/19 25 09/14/2024 MICRO SCOPI C EXAMI NATIO N bacteria Many nonese en/few abnormal Not Available [facility] ([facility]) [address] [facility], [place], [address], 09/26/2024 16:38:15 09/14/19 25 09/14/2024 TSH RFX ON ABNOR MAL TO FREE T4 TSH - uIU/m L Test not perfo rmed. No serum recei chris. Not Available [facility] ([facility]) [address] [facility], [place], [address], 09/26/2024 16:38:15 09/14/19 25 09/14/2024 HEMOG LOBIN A1C hemoglobin A1C - % Test not perfo rmed. No laven abdoulaye top tube submi tted. Predi abete s: 5.7 - 6.4 Diabe valdez: >6.4 Glyce ana contr ol for adult s with diabe valdez: <7.0 Not Available [facility] ([facility]) [address] [place], [address], 09/26/2024 16:38:16 09/14/19 25 09/14/2024 URINA LYSIS , COMPL ETE specific gravity 1.005 1.005- 1.030 Not Available [facility] ([facility]) [address] [place], [address], 09/26/2024 16:38:17 09/14/19 25 09/14/2024 URINA LYSIS , COMPL ETE pH 7.5 5.0-7. 5 Not Available [facility] ([facility]) [address] [place], [address], 09/26/2024 16:38:17 09/14/19 25 09/14/2024 URINA LYSIS , COMPL ETE urine-color YELLOW yellow Not Available [facility] ([facility]) [address] [place], [address], 09/26/2024 16:38:17 09/14/19 25 09/14/2024 URINA LYSIS , COMPL ETE appearance CLEAR clear Not Available [facility] ([facility]) [address] [place], [address], 09/26/2024 16:38:17 09/14/19 25 09/14/2024 URINA LYSIS , COMPL ETE WBC esterase NEGATI VE negati ve Not Available [facility] ([facility]) [address] [facility], [place], [address], 09/26/2024 16:38:17 09/14/19 25 09/14/2024 URINA LYSIS , COMPL ETE protein NEGATI VE negati ve/tra ce Not Available [facility] ([facility]) [address] [facility], [place], [address], 09/26/2024 16:38:17 09/14/19 25 09/14/2024 URINA LYSIS , COMPL ETE glucose NEGATI VE negati ve Not Available [facility] ([facility]) [address] [place], [address], 09/26/2024 16:38:17 09/14/19 25 09/14/2024 URINA LYSIS , COMPL ETE ketones NEGATI VE negati ve Not Available [facility] ([facility]) [address] [place], [address], 09/26/2024 16:38:17 09/14/19 25 09/14/2024 URINA LYSIS , COMPL ETE occult blood NEGATI VE negati ve Not Available [facility] ([facility]) [address] [place], [address], 09/26/2024 16:38:17 09/14/19 25 09/14/2024 URINA LYSIS , COMPL ETE bilirubin NEGATI VE negati ve Not Available [facility] ([facility]) [address] [place], [address], 09/26/2024 16:38:17 09/14/19 25 09/14/2024 URINA LYSIS , COMPL ETE urobilinogen ,semi-qn 0.2 mg/dL 0.2-1. 0 Not Available [facility] ([facility]) [address] [facility], [place], [address], 09/26/2024 16:38:17 09/14/19 25 09/14/2024 URINA LYSIS , COMPL ETE nitrite, urine NEGATI VE negati ve Not Available [facility] ([facility]) [address] [facility], [place], [address], 09/26/2024 16:38:17 09/14/19 25 09/14/2024 URINA LYSIS , COMPL ETE microscopic examination COMMEN T Micro scopi c follo ws if indic ated. Not Available [facility] ([facility]) [address] [facility], [place], [address], 09/26/2024 16:38:17 09/14/19 25 09/14/2024 URINA LYSIS , COMPL ETE microscopic examination SEE BELOW: Micro scopi c was indic ated and was perfo rmed. Not Available [facility] ([facility]) [address] [facility], [place], [address], 09/26/2024 16:38:17 09/14/19 25 09/14/2024 CBC WITH DIFFE RENTI AL/PL ATELE T WBC - x10e3 /uL Test not perfo rmed. No laven abdoulaye top tube submi tted. Not Available [facility] ([facility]) [address] [facility], [place], [address], 09/26/2024 16:38:18 09/14/19 25 09/14/2024 CBC WITH DIFFE RENTI AL/PL ATELE T RBC - Test not perfo rmed Not Available [facility] ([facility]) [address] [facility], [place], [address], 09/26/2024 16:38:18 09/14/19 25 09/14/2024 CBC WITH DIFFE RENTI AL/PL ATELE T hemoglobin - Test not perfo rmed Not Available [facility] ([facility]) [address] [facility], [place], [address], 09/26/2024 16:38:18 09/14/19 25 09/14/2024 CBC WITH DIFFE RENTI AL/PL ATELE T hematocrit - Test not perfo rmed Not Available [facility] ([facility]) [address] [facility], [place], [address], 09/26/2024 16:38:18 09/14/19 25 09/14/2024 CBC WITH DIFFE RENTI AL/PL ATELE T platelets - Test not perfo rmed Not Available [facility] ([facility]) [address] [facility], [place], [address], 09/26/2024 16:38:18 09/14/19 25 09/14/2024 CBC WITH DIFFE RENTI AL/PL ATELE T neutrophils - Test not perfo rmed Not Available [facility] ([facility]) [address] [facility], [place], [address], 09/26/2024 16:38:18 09/14/19 25 09/14/2024 CBC WITH DIFFE RENTI AL/PL ATELE T lymphs - Test not perfo rmed Not Available [facility] ([facility]) [address] [facility], [place], [address], 09/26/2024 16:38:18 09/14/19 25 09/14/2024 CBC WITH DIFFE RENTI AL/PL ATELE T monocytes - Test not perfo rmed Not Available [facility] ([facility]) [address] [place], [address], 09/26/2024 16:38:18 09/14/19 25 09/14/2024 CBC WITH DIFFE RENTI AL/PL ATELE T eos - Test not perfo rmed Not Available [facility] ([facility]) [address] [place], [address], 09/26/2024 16:38:18 09/14/19 25 09/14/2024 CBC WITH DIFFE RENTI AL/PL ATELE T lymphs (absolute) - Test not perfo rmed Not Available [facility] ([facility]) [address] [facility], [place], [address], 09/26/2024 16:38:18 09/14/19 25 09/14/2024 CBC WITH DIFFE RENTI AL/PL ATELE T eos (absolute) - Test not perfo rmed Not Available [facility] ([facility]) [address] [facility], [place], [address], 09/26/2024 16:38:18 09/14/19 25 09/14/2024 CBC WITH DIFFE RENTI AL/PL ATELE T baso (absolute) - Test not perfo rmed Not Available [facility] ([facility]) [address] [place], [address], 09/26/2024 16:38:18 09/14/19 25 09/14/2024 VITAM IN D, 25-HY DROXY vitamin D, 25-hydroxy - NG/mL Test not perfo rmed. No serum recei chris. Vitam in D defic iency has been defin ed by the Insti tute of Medic ine and an Endoc rine Socie ty pract ice guide line as a level of serum 25-OH vitam in D less than 20 ng/mL (1,2) . The Endoc rine Socie ty went on to [facility] er defin e vitam in D insuf ficie ncy as a level betwe en 21 and 29 ng/mL (2). 1. IOM (Inst itute of Medic ine). 2010. Dieta ry refer ence intmaria c es for calci um and D. Juan Carlos clements [place]: The Natio [facility] Acade [facility] Press . 2. Darrius chavez MF, Mini alvarado [place], Bismoses off-F errar i NARAYANAN, et al. Evalu ation , treat ment, and preve ntion of vitam in D defic iency : an Endoc rine Socie ty clini mattie pract ice guide line. JCEM. 2010; 96(7) :1911 -30. Not Available [facility] ([facility]) [address] [facility], [place], [address], 09/26/2024 16:38:19 09/20/19 25 09/20/2024 INTER PRETA TION: interpretati on: Commen t Not infec roland with HCV unles s early or acute infec tion is suspe cted (whic h may be delay ed in an immun ocomp romis ed indiv idual ), or other evide nce exist s to indic ate HCV infec tion. Not Available [facility] ([facility]) [address] [facility], [place], [address], 09/22/2024 03:36:43 09/20/19 25 09/20/2024 HCV ANTIB ELAYNE RFX TO QUANT PCR HCV Ab NON REACTI VE nonrea ctive Not Available [facility] ([facility]) [address] [facility], [place], [address], 09/22/2024 03:36:43 09/20/19 25 09/19/2024 TSH+F REE T4 TSH - uIU/m L Dupli finesse proce dure order ed. Not Available [facility] ([facility]) [address] [place], [address], 09/22/2024 03:36:44 09/20/19 25 09/20/2024 TSH+F REE T4 T4,free(dire ct) 1.15 NG/dL 0.82-1 .77 Not Available [facility] ([facility]) [address] [place], [address], 09/22/2024 03:36:44 09/20/19 25 09/20/2024 LIPID PANEL cholesterol, total 211 mg/dL 100-19 9 above high normal Not Available [facility] ([facility]) [address] [place], [address], 09/22/2024 03:36:45 09/20/19 25 09/20/2024 LIPID PANEL triglyceride s 71 mg/dL 0-149 Not Available [facility] ([facility]) [address] [place], [address], 09/22/2024 03:36:45 09/20/19 25 09/20/2024 LIPID PANEL HDL cholesterol 66 mg/dL >39 Not Available [facility] ([facility]) [address] [place], [address], 09/22/2024 03:36:45 09/20/19 25 09/20/2024 LIPID PANEL VLDL cholesterol mattie 13 mg/dL 5-40 Not Available [facility] ([facility]) [address] [place], [address], 09/22/2024 03:36:45 09/20/19 25 09/20/2024 LIPID PANEL LDL chol calc ([facility]) 132 mg/dL 0-99 above high normal Not Available [facility] ([facility]) [address] [place], [address], 09/22/2024 03:36:45 09/20/19 25 09/20/2024 COMP. METAB OLIC PANEL (14) glucose 77 mg/dL 70-99 Not Available [facility] ([facility]) [address] [place], [address], 09/22/2024 03:36:46 09/20/19 25 09/20/2024 COMP. METAB OLIC PANEL (14) BUN 12 mg/dL 6-24 Not Available [facility] ([facility]) [address] [place], [address], 09/22/2024 03:36:46 09/20/19 25 09/20/2024 COMP. METAB OLIC PANEL (14) creatinine 0.65 mg/dL 0.57-1 .00 Not Available [facility] ([facility]) [address] [place], [address], 09/22/2024 03:36:46 09/20/19 25 09/20/2024 COMP. METAB OLIC PANEL (14) eGFR 106 mL/mi n/1.7 3 >59 Not Available [facility] ([facility]) [address] [facility], [place], [address], 09/22/2024 03:36:46 09/20/19 25 09/20/2024 COMP. METAB OLIC PANEL (14) BUN/creatini ne ratio 18 9-23 Not Available [facility] ([facility]) [address] [facility], [place], [address], 09/22/2024 03:36:46 09/20/19 25 09/20/2024 COMP. METAB OLIC PANEL (14) sodium 139 mmol/ L 134-14 4 Not Available [facility] ([facility]) [address] [facility], [place], [address], 09/22/2024 03:36:46 09/20/19 25 09/20/2024 COMP. METAB OLIC PANEL (14) potassium 4.0 mmol/ L 3.5-5. 2 Not Available [facility] ([facility]) [address] [facility], [place], [address], 09/22/2024 03:36:46 09/20/19 25 09/20/2024 COMP. METAB OLIC PANEL (14) chloride 100 mmol/ L 96-106 Not Available [facility] ([facility]) [address] [facility] [place], [address], 09/22/2024 03:36:46 09/20/19 25 09/20/2024 COMP. METAB OLIC PANEL (14) carbon dioxide, total 25 mmol/ L 20-29 Not Available [facility] ([facility]) [address] [facility] [place], [address], 09/22/2024 03:36:46 09/20/19 25 09/20/2024 COMP. METAB OLIC PANEL (14) calcium 9.5 mg/dL 8.7-10 .2 Not Available [facility] ([facility]) [address] [facility], [place], [address], 09/22/2024 03:36:46 09/20/19 25 09/20/2024 COMP. METAB OLIC PANEL (14) protein, total 7.5 g/dL 6.0-8. 5 Not Available [facility] ([facility]) [address] [facility], [place], [address], 09/22/2024 03:36:46 09/20/19 25 09/20/2024 COMP. METAB OLIC PANEL (14) albumin 4.6 g/dL 3.8-4. 9 Not Available [facility] ([facility]) [address] [facility] [place], [address], 09/22/2024 03:36:46 09/20/19 25 09/20/2024 COMP. METAB OLIC PANEL (14) globulin, total 2.9 g/dL 1.5-4. 5 Not Available [facility] ([facility]) [address] [facility] [place], [address], 09/22/2024 03:36:46 09/20/19 25 09/20/2024 COMP. METAB OLIC PANEL (14) bilirubin, total 0.5 mg/dL 0.0-1. 2 Not Available [facility] ([facility]) [address] [facility] [place], [address], 09/22/2024 03:36:46 09/20/19 25 09/20/2024 COMP. METAB OLIC PANEL (14) alkaline phosphatase 56 IU/L 44-121 Not Available [facility] ([facility]) [address] [facility], [place], [address], 09/22/2024 03:36:46 09/20/19 25 09/20/2024 COMP. METAB OLIC PANEL (14) AST (SGOT) 18 IU/L 0-40 Not Available [facility] ([facility]) [address] [facility], [place], [address], 09/22/2024 03:36:46 09/20/19 25 09/20/2024 COMP. METAB OLIC PANEL (14) ALT (SGPT) 14 IU/L 0-32 Not Available [facility] ([facility]) [address] [facility], [place], [address], 09/22/2024 03:36:46 09/20/19 25 09/20/2024 MICRO SCOPI C EXAMI NATIO N WBC None seen /hpf 0-5 Not Available [facility] ([facility]) [address] [facility], [place], [address], 09/22/2024 03:36:48 09/20/19 25 09/20/2024 MICRO SCOPI C EXAMI NATIO N RBC None seen /hpf 0-2 Not Available [facility] ([facility]) [address] [facility], [place], [address], 09/22/2024 03:36:48 09/20/19 25 09/20/2024 MICRO SCOPI C EXAMI NATIO N epithelial cells (non renal) None seen /hpf 0-10 Not Available [facility] ([facility]) [address] [facility], [place], [address], 09/22/2024 03:36:48 09/20/19 25 09/20/2024 MICRO SCOPI C EXAMI NATIO N casts None seen /lpf nonese en Not Available [facility] ([facility]) [address] [place], [address], 09/22/2024 03:36:48 09/20/19 25 09/20/2024 MICRO SCOPI C EXAMI NATIO N bacteria None seen nonese en/few Not Available [facility] ([facility]) [address] [place], [address], 09/22/2024 03:36:48 09/20/19 25 09/20/2024 TSH RFX ON ABNOR MAL TO FREE T4 TSH 1.370 uIU/m L 0.450- 4.500 Not Available [facility] ([facility]) [address] [place], [address], 09/22/2024 03:36:48 09/20/19 25 09/20/2024 HEMOG LOBIN A1C hemoglobin A1C 5.0 % 4.8-5. 6 Predi abete s: 5.7 - 6.4 Diabe valdez: >6.4 Glyce ana contr ol for adult s with diabe valdez: <7.0 Not Available [facility] ([facility]) [address] [place], [address], 09/22/2024 03:36:49 09/20/19 25 09/20/2024 URINA LYSIS , COMPL ETE specific gravity 1.006 1.005- 1.030 Not Available [facility] ([facility]) [address] [place], [address], 09/22/2024 03:36:50 09/20/19 25 09/20/2024 URINA LYSIS , COMPL ETE pH 7.0 5.0-7. 5 Not Available [facility] ([facility]) [address] [place], [address], 09/22/2024 03:36:50 09/20/19 25 09/20/2024 URINA LYSIS , COMPL ETE urine-color YELLOW yellow Not Available [facility] ([facility]) [address] [place], [address], 09/22/2024 03:36:50 09/20/19 25 09/20/2024 URINA LYSIS , COMPL ETE appearance CLEAR clear Not Available [facility] ([facility]) [address] [place], [address], 09/22/2024 03:36:50 09/20/19 25 09/20/2024 URINA LYSIS , COMPL ETE WBC esterase NEGATI VE negati ve Not Available [facility] ([facility]) [address] [facility], [place], [address], 09/22/2024 03:36:50 09/20/19 25 09/20/2024 URINA LYSIS , COMPL ETE protein NEGATI VE negati ve/tra ce Not Available [facility] ([facility]) [address] [facility], [place], [address], 09/22/2024 03:36:50 09/20/19 25 09/20/2024 URINA LYSIS , COMPL ETE glucose NEGATI VE negati ve Not Available [facility] ([facility]) [address] [place], [address], 09/22/2024 03:36:50 09/20/19 25 09/20/2024 URINA LYSIS , COMPL ETE ketones TRACE negati ve abnormal Not Available [facility] ([facility]) [address] [place], [address], 09/22/2024 03:36:50 09/20/19 25 09/20/2024 URINA LYSIS , COMPL ETE occult blood NEGATI VE negati ve Not Available [facility] ([facility]) [address] [place], [address], 09/22/2024 03:36:50 09/20/19 25 09/20/2024 URINA LYSIS , COMPL ETE bilirubin NEGATI VE negati ve Not Available [facility] ([facility]) [address] [place], [address], 09/22/2024 03:36:50 09/20/19 25 09/20/2024 URINA LYSIS , COMPL ETE urobilinogen ,semi-qn 0.2 mg/dL 0.2-1. 0 Not Available [facility] ([facility]) [address] [facility], [place], [address], 09/22/2024 03:36:50 09/20/19 25 09/20/2024 URINA LYSIS , COMPL ETE nitrite, urine NEGATI VE negati ve Not Available [facility] ([facility]) [address] [facility], [place], [address], 09/22/2024 03:36:50 09/20/19 25 09/20/2024 URINA LYSIS , COMPL ETE microscopic examination COMMEN T Micro scopi c follo ws if indic ated. Not Available [facility] ([facility]) [address] [facility], [place], [address], 09/22/2024 03:36:50 09/20/19 25 09/20/2024 URINA LYSIS , COMPL ETE microscopic examination SEE BELOW: Micro scopi c was indic ated and was perfo rmed. Not Available [facility] ([facility]) [address] [facility], [place], [address], 09/22/2024 03:36:50 09/20/19 25 09/20/2024 CBC WITH DIFFE RENTI AL/PL ATELE T WBC 6.4 x10e3 /uL 3.4-10 .8 Not Available [facility] ([facility]) [address] [facility], [place], [address], 09/22/2024 03:36:51 09/20/19 25 09/20/2024 CBC WITH DIFFE RENTI AL/PL ATELE T RBC 4.75 x10e6 /uL 3.77-5 .28 Not Available [facility] ([facility]) [address] [facility], [place], [address], 09/22/2024 03:36:51 09/20/19 25 09/20/2024 CBC WITH DIFFE RENTI AL/PL ATELE T hemoglobin 13.6 g/dL 11.1-1 5.9 Not Available [facility] ([facility]) [address] [facility], [place], [address], 09/22/2024 03:36:51 09/20/19 25 09/20/2024 CBC WITH DIFFE RENTI AL/PL ATELE T hematocrit 42.5 % 34.0-4 6.6 Not Available [facility] ([facility]) [address] [facility], [place], [address], 09/22/2024 03:36:51 09/20/19 25 09/20/2024 CBC WITH DIFFE RENTI AL/PL ATELE T MCV 90 fL 79-97 Not Available [facility] ([facility]) [address] [facility], [place], [address], 09/22/2024 03:36:51 09/20/19 25 09/20/2024 CBC WITH DIFFE RENTI AL/PL ATELE T MCH 28.6 pg 26.6-3 3.0 Not Available [facility] ([facility]) [address] [facility], [place], [address], 09/22/2024 03:36:51 09/20/19 25 09/20/2024 CBC WITH DIFFE RENTI AL/PL ATELE T MCHC 32.0 g/dL 31.5-3 5.7 Not Available [facility] ([facility]) [address] [facility], [place], [address], 09/22/2024 03:36:51 09/20/19 25 09/20/2024 CBC WITH DIFFE RENTI AL/PL ATELE T RDW 12.0 % 11.7-1 5.4 Not Available [facility] ([facility]) [address] [facility], [place], [address], 09/22/2024 03:36:51 09/20/19 25 09/20/2024 CBC WITH DIFFE RENTI AL/PL ATELE T platelets 203 x10e3 /uL 150-45 0 Not Available [facility] ([facility]) [address] [facility], [place], [address], 09/22/2024 03:36:51 09/20/19 25 09/20/2024 CBC WITH DIFFE RENTI AL/PL ATELE T neutrophils 62 % notest ab. Not Available [facility] ([facility]) [address] [facility], [place], [address], 09/22/2024 03:36:51 09/20/19 25 09/20/2024 CBC WITH DIFFE RENTI AL/PL ATELE T lymphs 27 % notest ab. Not Available [facility] ([facility]) [address] [facility], [place], [address], 09/22/2024 03:36:51 09/20/19 25 09/20/2024 CBC WITH DIFFE RENTI AL/PL ATELE T monocytes 9 % notest ab. Not Available [facility] ([facility]) [address] [facility], [place], [address], 09/22/2024 03:36:51 09/20/19 25 09/20/2024 CBC WITH DIFFE RENTI AL/PL ATELE T eos 1 % notest ab. Not Available [facility] ([facility]) [address] [facility], [place], [address], 09/22/2024 03:36:51 09/20/19 25 09/20/2024 CBC WITH DIFFE RENTI AL/PL ATELE T basos 1 % notest ab. Not Available [facility] ([facility]) [address] [facility], [place], [address], 09/22/2024 03:36:51 09/20/19 25 09/20/2024 CBC WITH DIFFE RENTI AL/PL ATELE T neutrophils (absolute) 4.0 x10e3 /uL 1.4-7. 0 Not Available [facility] ([facility]) [address] [facility], [place], [address], 09/22/2024 03:36:51 09/20/19 25 09/20/2024 CBC WITH DIFFE RENTI AL/PL ATELE T lymphs (absolute) 1.7 x10e3 /uL 0.7-3. 1 Not Available [facility] ([facility]) [address] [facility], [place], [address], 09/22/2024 03:36:51 09/20/19 25 09/20/2024 CBC WITH DIFFE RENTI AL/PL ATELE T monocytes(ab solute) 0.5 x10e3 /uL 0.1-0. 9 Not Available [facility] ([facility]) [address] [facility], [place], [address], 09/22/2024 03:36:51 09/20/19 25 09/20/2024 CBC WITH DIFFE RENTI AL/PL ATELE T eos (absolute) 0.1 x10e3 /uL 0.0-0. 4 Not Available [facility] ([facility]) [address] [facility], [place], [address], 09/22/2024 03:36:51 09/20/19 25 09/20/2024 CBC WITH DIFFE RENTI AL/PL ATELE T baso (absolute) 0.1 x10e3 /uL 0.0-0. 2 Not Available [facility] ([facility]) [address] [facility], [place], [address], 09/22/2024 03:36:51 09/20/19 25 09/20/2024 CBC WITH DIFFE RENTI AL/PL ATELE T immature granulocytes 0 % notest ab. Not Available [facility] ([facility]) [address] [place], [address], 09/22/2024 03:36:51 09/20/19 25 09/20/2024 CBC WITH DIFFE RENTI AL/PL ATELE T immature grans (abs) 0.0 x10e3 /uL 0.0-0. 1 Not Available [facility] ([facility]) [address] [facility], [place], [address], 09/22/2024 03:36:51 09/20/1909/22/2024 URINE CULTU RE,CO MPREH ENSIV E urine culture,comp rehensive FINAL REPORT Not Available [facility] ([facility]) [address] [facility], [place], [address], 09/22/2024 03:36:53 09/20/19 25 09/22/2024 URINE CULTU RE,CO MPREH ENSIV E result 1 COMMEN T No growt h in 36 - 48 hours . Not Available [facility] ([facility]) [address] [facility], [place], [address], 09/22/2024 03:36:53 09/20/19 25 09/20/2024 VITAM IN D, 25-HY DROXY vitamin D, 25-hydroxy 68.3 NG/mL 30.0-1 00.0 Vitam in D defic iency has been defin ed by the Insti tute of Medic ine and an Endoc rine Socie ty pract ice guide line as a level of serum 25-OH vitam in D less than 20 ng/mL (1,2) . The Endoc rine Socie ty went on to furth er defin e vitam in D insuf ficie ncy as a level betwe en 21 and 29 ng/mL (2). 1. IOM (Inst itute of Medic ine). 2009. Dieta ry refer ence intmaria c es for calci um and D. Juan Carlos clements [place]: The Natio nal [facility] Press . 2. Darrius chavez MF, Mini alvarado [place], Bandar off-F errar i NARAYANAN, et al. Evalu ation , treat ment, and preve ntion of vitam in D defic iency : an Endoc rine Socie ty clini mattie pract ice guide line. JCEM. 2010; 96(7) :1911 -30. Not Available [facility] ([facility]) [address] [facility], [place], [address], 09/22/2024 03:36:54 04/15/2004/11/2023 MRI, lumba r spine , w/o contr ast No observ ation record ed. [facility] [address], [place], [address], 04/25/2023 14:34:49 05/03/2005/03/2023 MRI, brain , w/o contr ast No observ ation record ed. [facility] [address], [place], [address], 05/12/2023 13:37:23 05/19/2005/18/2023 CT, abdom en, w/wo contr ast No observ ation record ed. Not Available 2022 11:47:35 07/26/1907/19/2023 US, renal No observ ation record ed. [address] [place], [address], 07/27/2023 12:00:27 07/26/1905/21/2023 event monit or No observ ation record ed. [facility] (Cardiology & Emg) [facility], [place], [address], 08/09/2023 17:17:19 03/12/2003/12/2024 MAMMO , scree josue, digit al, bilat eral No observ ation record ed. [email or web address] [address] [place], [address], 03/13/2024 13:22:04 03/29/2003/29/2024 elect nicole reynagr am No observ ation record ed. [facility] (Cardiology) [address] [place] [address] [place], [address], 04/02/2024 11:51:05 03/29/20 24 03/29/2024 elect nicole reynagr am No observ ation record ed. [facility] (Cardiology) [address] [facility] [place], [address], 04/02/2024 11:51:06 04/01/2003/29/2024 XR, chest , 2 view No observ ation record ed. [facility] [address] [facility] [place], [address], 04/02/2024 11:51:06 Result Notes None recorded. Problems No Known Problems Medical Equipment None Reported. Allergies No known drug allergies Medications Name Sig Start Date Stop Date Status Note LastModified by Organization Details LastModified Time amoxicillin 500 mg capsule TAKE 1 CAPSULE BY MOUTH EVERY 8 HOURS DIRECTED FOR 7 DAYS 09/13 completed Not Available Not Available Not Available doxycycline hyclate 100 mg capsule TAKE 1 CAPSULE BY MOUTH TWICE A DAY DIRECTED FOR 7 DAYS 04/19 completed Not Available Not Available Not Available trazodone 50 mg tablet TAKE 0.5 TABLET BY MOUTH NIGHTLY NEEDED FOR SLEEP. 09/21 completed Not Available Not Available Not Available estradiol 0.075 mg/24 hr semiweekly transdermal patch active Not Available Not Available Not Available azithromyci n 250 mg tablet TAKE 2 TABLETS BY MOUTH TODAY, THEN TAKE 1 TABLET DAILY FOR 4 DAYS 04/28 completed Not Available Not Available Not Available fluconazole 150 mg tablet TAKE 1 TABLET BY MOUTH EVERY DAY DIRECTED FOR 1 DAY 09/13 completed Not Available Not Available Not Available hydrocodone 5 mg-acetamin ophen 325 mg tablet TAKE 1 TABLET BY MOUTH EVERY 4 HOURS NEEDED FOR PAIN. DO NOT EXCEED 8 TABLETS IN 24 HOURS 04/28 completed Not Available Not Available Not Available meloxicam 15 mg tablet TAKE 1 TABLET (15 MG TOTAL) BY MOUTH DAILY FOR 14 DAYS WITH FOOD 08/25 completed Not Available Not Available Not Available estradiol 0.1 mg/[address] 1 PATCH ON THE SKIN 2 TIMES A WEEK. 10/04 completed Not Available Not Available Not Available atenolol 25 mg tablet Take 1 tablet every day by oral route as needed. 2024 active Not Available Not Available Not Avai lable potassium chloride ER 10 mEq tablet,exte nded release TAKE 1 TABLET BY MOUTH EVERY DAY WITH BREAKFAST 09/21 completed Not Available Not Available Not Available metronidazo le 500 mg tablet TAKE 1 TABLET BY MOUTH TWICE A DAY FOR 7 DAYS active Not Available Not Available No t Available triamcinolo ne acetonide 0.1 % topical cream APPLY TO ITCHY SPOTS TWICE A DAY NEEDED 08/25 completed Not Available Not Available Not Available oxycodone-a cetaminophe n 5 mg-325 mg tablet TAKE 1 TABLET BY MOUTH EVERY 6 HOURS NEEDED FOR PAIN 04/23 completed Not Available Not Available Not Available progesteron e micronized 200 mg capsule 09/21 completed Not Available Not Available Not Available diclofenac sodium 75 mg tablet,marline yed release TAKE 1 TABLET BY MOUTH TWICE A DAY WITH FOOD active Not Available Not Available No t Available hydroxyzine HCl 25 mg tablet TAKE 1 TABLET 3 TIMES A DAY BY ORAL ROUTE NEEDED. 09/21 completed Not Available Not Available Not Available mupirocin 2 % topical ointment APPLY A SMALL AMOUNT TO THE AFFECTED AREA 3 TIMES A DAY FOR 10 DAYS 09/21 completed Not Available Not Available Not Available metoprolol succinate ER 25 mg tablet,exte nded release 24 hr 09/21 completed Not Available Not Available Not Available ibuprofen 600 mg tablet TAKE 1 TABLET (600 MG TOTAL) BY MOUTH EVERY 6 HOURS NEEDED FOR PAIN 10/04 completed Not Available Not Available Not Available estradiol 0.0375 mg/24 hr semiweekly transdermal patch [address] 1 PATCH ON THE SKIN 2 TIMES A WEEK. 04/28 completed Not Available Not Available Not Available progesteron e micronized 100 mg capsule TAKE 1 CAPSULE BY MOUTH EVERY DAY NIGHTLY 10/04 completed Not Available Not Available Not Available amoxicillin 875 mg-potassiu m clavulanate 125 mg tablet TAKE 1 TABLET BY MOUTH TWICE A DAY FOR 7 DAYS 08/25 completed Not Available Not Available Not Available magnesium active Not Available Not Elle ilable Not Available Fish Oil active Not Available Not Avai lable Not Available Vitamin D3 active 2000I U Not Available Not Available Not Available Corlanor 5 mg tablet TAKE 0.5 TABLET (2.5 MG TOTAL) BY MOUTH 2 (TWO) TIMES A DAY WITH MEALS 09/21 completed Not Available Not Available Not Available DIM-plus active Not Available Not Avai lable Not Available Vitals Date Recorded Body height Provider Name an d Address Organization Details Last Updated DateTime 09/13/2024 154.94 cm DELIA Richardson NP Attn: Neida[address] [place], [address], [facility] 09/13/2024 14:46:49 Date Recorded Body mass index (BMI) Body weight Oxygen saturation Oxygen saturation in Arterial blood by Pulse oximetry Body temperature Respiratory rate Heart rate Systolic blood pressure Diastolic blood pressure Provider Name and Address Organization Details Last Updated DateTime 5 27 kg/m2 91085.4 1 g 99 % 99 % 98.2 [degF] 17 /min 76 /min 120 mm[Hg] 76 mm[Hg] Beatriz Medina MA [facility] 5 15:24:23 Date Recorded Body height Oxygen saturation Oxygen saturation in Arterial blood by Pulse oximetry Heart rate Respiratory rate Body temperature Systolic blood pressure Diastolic blood pressure Provider Name and Address Organization Details Last Updated DateTime 4 154.94 cm 100 % 100 % 79 /min 18 /min 98 [degF] 118 mm[Hg] 80 mm[Hg] DELIA Richardson NP Attn: Laiht nettles,[address] [place], [address], [facility] 4 10:06:58 Date Recorded Body height Body mass index (BMI) Body weight Oxygen saturation Oxygen saturation in Arterial blood by Pulse oximetry Heart rate Respiratory rate Body temperature Systolic blood pressure Diastolic blood pressure Provider Name and Address Organization Details Last Updated DateTime 3 154.94 cm 25.9 kg/m2 42851.1 5 g 99 % 99 % 76 /min 16 /min 97.1 [degF] 110 mm[Hg] 70 mm[Hg] ERMIAS Schafer [facility] 3 12:35:31 Date Recorded Body height Body mass index (BMI) Body weight Oxygen saturation Oxygen saturation in Arterial blood by Pulse oximetry Heart rate Respiratory rate Body temperature Systolic blood pressure Diastolic blood pressure Systolic blood pressure Diastolic blood pressure Systolic blood pressure Diastolic blood pressure Systolic blood pressure Diastolic blood pressure Provider Name and Address Organization Details Last Updated DateTime 3 154.94 cm 25.1 kg/m2 62742.7 9 g 99 % 99 % 76 /min 20 /min 98.4 [degF] 132 mm[Hg] 82 mm[Hg] 122 mm[Hg] 80 mm[Hg] 128 mm[Hg] 90 mm[Hg] 134 mm[Hg] 98 mm[Hg] ERMIAS Schafer [place] - [facility] 3 13:23:31 Social History Question Answer Notes LastModified by Texere Details LastModified Time Tobacco Smoking Status Never Smoker ERMIAS [place], [place] - [facility] 04/28/2023 12:36:14 What Was The Date Of Your Most Recent Tobacco Screening? 09/13/2024 Information not available 09/13/2024 Has Tobacco Cessation Counseling Been Provided? Yes Information not available 04/28/2023 On What Date Was Tobacco Cessation Counseling Provided? 05/12/2023 Information not available 05/12/2023 Sex: Unknown Functional Status Question Answer Note LastModified by Texere Details LastModified Time Do you use any illicit or recreational drugs? No Information not available 04/28/2023 Do you or have you ever used any other forms of tobacco or nicotine? No Information not available 04/28/2023 What is your level of alcohol consumption? None Information not available 04/28/2023 Mental Status None recorded. Family History Relationship Description Onset Age of this Age Resolved Age Notes LastModified by Organization Details LastModified Time Father No current problems or disability [email or web address] Not available 04/28 12:35:59 Mother No current problems or disability [email or web address] Not available 04/28 12:35:59 Medical History No medical history recorded. Gynecological HistoryNo gynecological history recorded. Obstetrics History GPAL:G 0 P 0 0 0 0 Immunizations Vaccine Type Date Status Note Provider Nam e and Address Organization Details Recorded Time Influenza, split virus, trivalent, preservative 3 completed ERMIAS [place], [place] - [facility] 05/23/2023 09:50:58 Tdap 4 completed DELIA Richardson NP Attn: [employer] [place], [address], [facility] [facility] - [facility] 11/23/2023 10:51:49 Past Encounters Encounter ID Performer Location Encounter Start Date Encounter Closed Date Diagnosis/Indication Diagnosis SNOMED-CT Code Diagnosis ICD10 Code Diagnosis Note [id number] Jonathan Abarca MD [facility] - [facility] - [facility] [address] [place] [address] 11/10/2022 10:18:17 11/25/2022 03:46:43 Adult health examination 822722534 Z00.00 [id number] Jonathan Abarca MD [facility] - [facility] - [facility] [address] [place] [address] 04/27/2023 11:14:31 05/03/2023 12:37:17 [id number] Jonathan Abarca MD [facility] - [facility] - [facility] [address] [place] [address] 04/28/2023 12:27:50 05/05/2023 13:14:56 Palpitations 71077310 R00.2 -Will check lab work.-Will complete imagining. -Pt agreeable to plan of care.-ER precaution s discussed. -To f/u with cardiology . Paresthesia 46363891 R20 .2 -ER precaution s discussed Family his tory of Autoimmune disease 032261363 Z83.2 -will r/o [id number] DELIA Richardson NP [facility] - [facility] - [facility] [address] [place] [address] 05/12/2023 12:40:34 06/01/2023 14:39:49 Palpitations 32079227 R00.2 -Orthostat ic BP taken. Significan t raise in BP noted upon standing.- Concern for secondary hypertensi on. Pending further lab results.-W ill f/u after cardio.-Pt requesting referral to [facility].-ER precaution s discussed. Paresthesia 65578001 R20 .2 -Increased neurologic al symptoms since last visit. Advised need for neurology. Pt agreeable to plan of care.-Will f/u after neuro-Refe rral to be sent to [facility]-ER precaution s discussed Vertigo [id number] R42 -Will make apt. [id number] Jonathan Abarca MD [facility] [employer] - [facility] [address] [place] [address] 11/23/2023 10:10:20 11/23/2023 10:26:56 Active or passive immunization [id number] Z23 -Can give tylenol for fever or pain.-Can use cool washcloth to area [id number] Jonathan Abarca MD [facility] [employer] - [facility] [address] [place] [address] 04/19/2024 10:03:46 04/19/2024 11:40:44 Urinary symptoms 388767627 R39.9 -Ketones noted on urine dip. Likely due to poor oral intake. Advised to increase protein and eat small frequent meals. Increase water intake.-wi ll culture urine.-Adv ised to call surgeon. She states she will. [id number] DELIA Richardson NP [facility] [employer] [facility] [employer] [address] [place] [address] 09/13/2024 14:44:45 10/04/2024 14:35:35 Adult health examination 068604533 Z00.00 -safety discussed with patient-Im munization s are UTD-Will make eye apt.-Diet and exercise discussed- Will make dental apt. Screening for osteoporosis 156877023 Z13.820 -Discussed DEXA scan. Overweight 469198900 E66 .3 -BMI 27 Health Concerns Section Related Observation LastModified by Organization Detai ls LastModified Time None Recorded Concern Status LastModified by Organization Details LastModified Time None Recorded Advance Directives Directive None Recorded Payers Encounter Date Sequence Insurance Name Policy Number Policy Martin Covered Member ID Martin Member ID Guarantor Name 04/28/2023 1 [facility] [id number] Estela Cabrera [id number] Estela Cabrera 05/12/2023 1 [facility] [id number] Estela Cabrera [id number] Estela Cabrera 11/23/2023 1 [facility] [id number] Estela Cabrera [id number] Estela Carbera 04/19/2024 1 [facility] [id number] Estela Cabrera [id number] Estela Cabrera 09/13/2024 1 [facility] [id number] Estela Cabrera [id number] Estela Cabrera Notes Date Note Type Note Provider Name and Address Organization Details Recorded Time 3 text/html PalpitationsReported bypatient.Location:chest Quality:irregular;rapid;s evere pounding Severity:severe/intense; very limiting Onset/Timing:multiple times per day Context:at rest;abrupt onset without warning Associated Symptoms:no chest pain/discomfort; no dyspnea;decline in exercise capacity;dizziness;syncop e Pt into [facility] for ER f/u palpitations. Pt report she was working on when she felt approximately 20 beats of intense palpitations, followed by a near syncopal event. Her job called 911. On arrival, she was shaky and feeling off. She was taken into the ER and had a negative workup. Pt reports she has continued to feel off. She reports headaches daily. She currently takes atenolol at bedtime for a history of tachycardia. Has a medical malpractice paralegal that she sees regularly. She did have a DNC last week with her OB. No N/V/D. No fevers. She denies any current chest pain. She does report dizziness intermittently as well. She has times where she will notices numbness and tingling to her extremities. She denies any currently. She usually exercises daily, but has been unable to due to symptoms. DELIA Richardson NP Attn: [address] [place], [address], [place] [facility] 05/02/2023 10:14:45 3 text/html Pt into clinic for follow up. Pt was seen 3 weeks ago after an ER visit for palpitations, dizziness and near syncope. She went to her medical malpractice paralegal who adjusted her atenolol up to 50 mg. She had a DNC one week prior to all of her symptoms beginning. Pt has continued to have intense dizziness, near syncope, and heaviness in her face. She notices numbness and tingling intermittently in her lips, around L eye/scientology, and in bilateral hands. Pt was able to exercise 5 times per week, she now is unable to exercise. She was hiking 3-6 miles per day. She has been unable to hike. She notes her sleeping has been poor. She also reports intermittent chest fullness and fluttering. She denies any current pain. She wore a holter monitor which showed multiple runs of supraventricular couplets, but no SVT. She had an echo which was read as normal by her medical malpractice paralegal. She has since called her medical malpractice paralegal and was switched from atenolol to Metropolol XL 25 mg PO QD. She has continued to have daily dizziness, high blood pressure and palpitations. She had a similar episode happen in 2014, but her HR was up to 200 at rest. She had a negative work up per cardiology. She notes her BP was spike at times. She will have a 110/64 BP while laying down, and it will shoot up to 172/98. She will note intense shaking at that time as well. Her basic lab work has been normal. She has pending further labs. She had an MRI of her brain which was read as few foci of T2 hyperintense flairs, no clinical significance. She has been unable to work due to symptoms. She also noted vertigo with ear fullness. DELIA Richardson NP Attn: [address] [place], [address], [facility] 05/12/2023 13:41:22 4 text/html Lower Urinary Tract Symptoms (LUTS)Reported bypatient.Location:left Quality:tender Context:denies excessive fluid intake; denies excessive caffeine intake Associated Symptoms:no flank pain; no low back pain; no chills; no fever; no constipation; no diarrhea; no nausea; no vomiting; no temperaure; good force of stream; no straining; no post void dribbling; no hesitancy; empties well; no incontinence; no nocturia; no urine odor; no gross hematuria;abdominal pain;groin pain;frequency Pt into school based clinic with concerns for UTI. Pt had a hysterectomy last week. Has felt suprapubic pain and pain with BM. Last BM was this AM and soft. Denies any fever. No N/V/D. No blood in urine or stool. Ate a granola bar on the way to clinic. Had chicken with poppy seeds last night around 6 pm. Has not drank anything since. DELIA Richardson NP Attn: [address] [place], [address], [place] [facility] 04/19/2024 12:28:46 5 text/html Pt into school based clinic for annual exam. No new concerns or complaints. Had a hysterectomy in April. Recovered well. Taking estradiol patch to help with menopausal symptoms. Has an apt with [facility] next month to see urology for renal mass. No new issues. Colonoscopy scheduled for December.Mammogram scheduled for Mar 2025. Immunizations are current.Pt was having symptoms of GERD, that has gotten better. DELIA Richardson NP Attn: [address], [place], [address], [facility] 10/04/2024 13:15:37 OBGyn Episode No OBEpisode recorded.
--- OUTSIDE RECORDS SUMMARY | 2024-12-03 01:50 | XMS_ITS | Clinical Summary ---
Author Organization [address] lt Address [address] [place] [address] Care Team Providers Care General Contractor Name Role Phone Chong Beard MD Unavailable John Robertson DO Unavailable [phone] Mamie Broussard MD Unavailable [phone] Michael Mercado DO Unavailable [phone] Travon Gaines MD Unavailable Alida HOPKINS MD, Lebron Patino Unavailable Delia Lu NP Primary Care Provider [phone] Allergies No known active allergies Medications cholecalciferol (VITAMIN D-3) 2000 unit capsuleIndicati ons:Vitamin D Deficiency Take 1 capsule (2,000 Units total) by mouth daily Active magnesium chloride 64 mg of elemental magnesium delayed release tablet Take 1 tablet (64 mg of elemental magnesium total) by mouth nightly Active omega-3 fatty acids-fish oil 300-1,000 mg capsule Take 2 capsules (2 g total) by mouth daily Active oxyCODONE-aceta minophen (Percocet) 5-325 mg per tabletIndicatio ns:Pain Take 1 tablet by mouth every 6 (six) hours as needed for pain 15 tablet Active Additional Information Patient not taking.Reported on 11/05/2024 ibuprofen (ADVIL,MOTRIN) 600 mg tablet Take 1 tablet (600 mg total) by mouth every 6 (six) hours as needed for pain (pain) 40 tablet 1 4 Active estradioL (VIVELLE-DOT) 0.1 mg/24 hrIndications:V asomotor Symptoms associated with Menopause Place 1 patch on the skin 2 (two) times a week 24 patch 3 4 Active progesterone (PROMETRIUM) 100 mg capsuleIndicati ons:Hormone replacement therapy,Vaginal dryness Take 1 capsule (100 mg total) by mouth daily 90 capsule 4 5 Active estradioL (ESTRACE) 0.01 % (0.1 mg/gram) vaginal creamIndication s:Hormone replacement therapy,Vaginal dryness Apply nightly to vagina for 1 week, then Tuesday/ y/ Tuesday 42.5 g 5 5 025 Active progesterone (PROMETRIUM) 100 mg capsule Take 1 capsule (100 mg total) by mouth daily 90 capsule 2 4 025 Discontin ued(Dupli finesse order) Active Problems Problem Noted Date Diagnosed Date Altered level of consciousness 05/30/2023 Postural orthostatic tachycardia syndrome 2022 JAYLA (iron deficiency anemia) 05/20/2023 Assessment & Plan (05/20/2023 5:29 PM EBAY RESELLER): -Recent heavy menses from fibroids -now s/p Hysteroscopy w/myomectomy ~5 weeks ago -continue HRT -Iron profile with transferrin sat 19% -Given poor po recently, will give 1 dose IV ferric gluconate while inpatient Palpitations 05/18/2023 Postural dizziness with presyncope 05/18/2023 Dizziness 05/17/2023 Elevated blood pressure reading 12/22/2021 Insect sting 12/22/2021 Multiple gallstones 11/02/2021 Gallbladder polyp 06/26/2020 Overview (06/26/2020): Incidental finding-- probably not significant --on evaluation of hematuria June 2020 I ncidental note of a 3 mm echogenic focus within the gallbladder. This is nonmobile. Inappropriate sinus node tachycardia 04/02/2015 Overview (10/07/2016): Palpitations Assessment & Plan (05/21/2023 3:24 PM EBAY RESELLER): Presents with about a month of progressively more frequent palpitations, intermittent hypertensive episodes, dizziness/lightheadedness, headache. Prior work up including echo, 48 hour holter, brain MRI unremarkable. Did have 24 hour urine with elevated metanephrines suspicious for pheochromocytoma. Normal labs reassuring (CBC, CMP, D-dimer, A1c, HIV, B12, ESR, CRP). RVP negative. -Continue to monitor on telemetry-SR, ST to HR ~141 w/minimal activity, no arrhythmias noted. Plan trial Ivabradine, outpt Tilt, 30 day event monitor. -Stopped metoprolol per Endocrine/Cards recs, pt reports feels somewhat better OFF the metop. -Endocrine consult appreciated: ABD/Pelvic CT with no radiologic evidence of pheochromocytoma. -Discussed w/Endo->inflammatory and cardiology testing so far is negative, would scan for paraganglioma ([id number] PET/CT) outpt. -24h urine collection for 5-HIAA completing today (had to be re-ordered due to lab error) -Cont Estrogen patch, nightly progesterone. Hormone levels (DHEA, Estrone, Estradiol, FSH WNL) -Repeat Orthostatic VS and symptoms concerning for Postural Orthostatic Tachycardia Syndrome -Tilt table study ordered, pt declined inpatient -Neurology consulted-> labs for workup of reversible neuropathies: PETROS, ANCA (with reflex to PR3) pending, HIV non-reactive, B12 WNL, A1c 5.0. - Plan outpatient Sudomotor testing, placed outpt order at discharge today - Neuro to place referral for an outpt EMG/NCS to rule out a peripheral neuropathy. Per Neuro: although this test does not r/o autonomic neuropathy, since peripheral and autonomic neuropathies often occur together, felt worthwhile -Teds hose. PT/OT evals-independent, so outpt therapy indicated. encouraged activity as able. Tachycardia 08/03/2014 Overview (12/13/2023): Cardiology evaluation by Dr. CHONG BEARD spring of 2014 symptoms cleared with atenolol 25 mg 1/2 tab twice daily follows with him yearly Echocardiogram August 2014 (-) Findings Atrial Septum: Normal atrial septum. Left Ventricle: Normal left ventricular systolic function with no focal wall motion abnormalities. Normal left ventricular size. Left ventricular wall thickness upper limits of normal. Ejection fraction is measured at 65 %. Left Atrium: The left atrium is normal in size. Right Ventricle: Normal right ventricular size. Normal right ventricular systolic function. Right Atrium: The right atrium is normal in size. Aortic Valve: Normal structure of the aortic valve. Mitral Valve: Normal structure of the mitral valve. Pulmonic Valve: Normal structure of the pulmonic valve. The 48 hr Holter monitor August 2014 IMPRESSION: 1. Sinus rhythm with sinus bradycardia and sinus tachycardia. 2. There was no diary accompanying this study. Dictated by: Nando Abdi M.D. F.A.C.C. 08/22/14 Resolved Problems Problem Noted Date Diagnosed Date Resolved Date Hematuria 06/25/2020 11/11/2021 Assessment & Plan (06/26/2020 7:45 AM EBAY RESELLER): Of unclear etiology as based on UA patient does not have UTI. Concern for possible renal stones, see below. If no stones identified will most likely need CT vs referral to urology for further evaluation and treatment. Rt flank pain 06/25/2020 11/11/2021 Assessment & Plan (06/26/2020 7:44 AM EBAY RESELLER): Patient reports intermittent rt flank pain associated with urinary discomforts. She was started on antibiotic for UTI however, UA negative. She did however, have hematuria raising suspicion for renal stone. We will do renal US in the am to evaluate for any obstructing stones. She was encouraged to push fluids and use tylenol or ibuprofen for pain or fevers. If no stone noted further evaluation for hematuria will be needed. Pain of left clavicle 06/23/20202021 Acute pain of left shoulder 06/23/2020 11/11/2021 Thyroid nodule 12/27/2017 11/11/2021 Overview (03/21/2019): Images from the original note were not included. Thyroid sonogram March 2019 multiple thyroid cysts subcentimeter unchanged from baseline no further evaluation needed Thyroid sonogram 10/18/2017 Right hip pain 09/28/2017 11/11/2021 Assessment & Plan (09/28/2017 2:31 PM CDT): Right hip pain-has hx of repetitive use when younger. Is trying chiropractor. Encourage to exercise, ROM, ice or heat. Take NSAIDS as needed and Vitamin D and Calcium supplement. Can try Glucosamine Chondrodite. If no improvement we can get an x-ray. Arthralgia of hand 03/25/2016 8 Overview (10/07/2016): Arthralgia of both hands Sensation of chest tightness 03/25/2016 12/27/2017 Overview (10/07/2016): Chest fullness Encounters Date Type Department Care Team Description 11/05/2024 3:30 PM CDT Office Visit [facility] [address] [place] [address] John Robertson, Hormone replacement therapy (Primary Dx); Vaginal dryness 11/02/2024 2:34 PM CDT - 11/02/2024 11:59 PM CDT Hospital Encounter [facility] [address] [place] [address] Encounter for screening for osteoporosis Discharge Disposition: Discharge to home or self care 11/02/2024 [place] [address] Kenia Grayson, RT from Last 3 Months Immunizations Immunization Administration Dates Next Due Influenza, Trivalent, IM (MDV) 05/14/2013 Surgical History Surgery Date Site/Laterality Comments HYSTEROSCOPY 09/01/2017 - 10/01/2017 JOHN [facility] pathology (-) COLONOSCOPY 03/04/2015 - 04/02/2015 Dr. Broussard (-)---[facility] needs report CYSTOSCOPY 06/03/2021 - 07/03/2021 with polyp removal HYSTEROSCOPY W/ POLYPECTOMY 04/12/2023 PMB MOHS SURGERY 07/04/2023 - 08/03/2023 MOHS /HURST HYSTERECTOMY W/ BILATERAL SALPINGOOPHORECTOMY 04/10/2024 TLH w/BSO Medical History Medical History Date Comments MVP (mitral valve prolapse) Uterine fibroid Bilateral elbow fractures Hip pain Heart palpitations Thyroid nodule small Headache Pain in multiple finger joints 2 para 2 NVD Family History Medical History Relation Name Comments Vibha's thyroiditis Brother Michael Thyroid disease Brother Michael Thyroid diso rder; Vibha's thyroiditis Daughter Godwin Alcohol abuse Father Adrian Arthritis Father Adrian Heart disease Father Adrian Hypertension Father Adrian Hypothyroidism Father Adrian Thyroid disor abdoulaye; elevated psa Father Adrian Thyroid disease Father's Sister Irma Thyroid d isorder; Heart disease Maternal Grandfather Moris Heart disease Maternal Grandmother Therese Hypertension Maternal Grandmother Therese Arthritis Mother Brynn Lichen planus Mother Brynn Other Mother Brynn auto immune; /l inchen plantus; /Alive and well; Colon cancer Paternal Grandfather Tarris Heart disease Paternal Grandfather Tarris Obesity Paternal Grandfather Tarris Prostate cancer Paternal Grandfather Tarris Relation Name Status Comments Brother Michael Daughter Godwin Alive diagnosed at 13 with Vibha's Father Adrian Father's Sister Irma Alive Maternal Grandfather Moris (Age 91) Maternal Grandmother Therese Alive Mother Brynn Alive Paternal Grandfather Taryee (Age 87) He art attack Paternal Grandmother Ritu (Age 87) Sister Tonya Alive Social History Tobacco Use Types Packs/Day Years Used Date Smoking Tobacco: Never Passive Smoke Exposure: Never Smokeless Tobacco: Never Tobacco Cessation:Counseling Given: Not Answered Alcohol Use Standard Drinks/Week Comments Yes 0 [...] on file Legal Sex Female 12:40 PM EBAY RESELLER Gender Identity Female 02/10/2020 7:57 PM CDT Sexual Orientation Straight 02/10/2020 7: 57 PM CDT 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 Not on file Not on file Obstetrics History Para Term AB IAB SAB Ectopic Multiple Livin g Live Births 2 2 2 2 2 Date Outcome GA Total Labor Labor/2nd/3rd Weight Sex Type Anes PTL Ruthie A1 A5 Name Clin Term Vag-Spo nt Term Vag-Spo nt Last Filed Vital Signs Vital Sign Reading Time Taken Comments Blood Pressure 120/73 11/05/2024 3:35 PM CDT Pulse 61 04/10/2024 3:30 PM CDT Temperature 36.2 C (97.2 F) 04/10/2024 1:20 PM CDT Respiratory Rate 15 04/10/2024 3:30 PM CDT Oxygen Saturation 100% 04/10/2024 3:30 PM CDT Inhaled Oxygen Concentration - - Weight 63 kg (138 lb 12.8 oz) 11/05/2024 3:35 PM CDT Height 154.9 cm (5' 1) 11/05/2024 3:35 PM CDT Body Mass Index 26.23 11/05/2024 3:35 PM CDT Plan of Treatment Health Maintenance Due Date Last Done Comments Colon Cancer Screening-Colonoscopy 1972 Hepatitis C Screening 1972 Hepatitis B Screening 1990 Zoster Vaccine (1 of 2) 2022 Depression Screening 11/11/2022 11/11/2021, 02/13/2020, 09/28/2017, Additional history exists Cervical Cancer Screening 12/04/20242023, 09/20/2022, 09/07/2021 Regular Well Visit/Exam 18-64 12/04/2024 12/05/2023, 09/20/2022, 11/11/2021, Additional history exists Influenza Vaccine (Season Ended) 2025 05/14/2013 Breast Cancer Screening-Mammogram 03/12/2025 03/12/2024, 01/06/2023, 01/06/2023, Additional history exists DTaP/Tdap/Td Vaccine (2 - Td or Tdap) 11/22/2033 11/23/2023 Pneumococcal vaccine <65 Aged Out No longer eligible based on patient's age to complete this topic Procedures Procedure Name Priority Date/Time Associated Diagnosis Comments DEXA AXIAL SKELETON BONE DENSITY 1 OR MORE SITES Schedule Routine, Read Routine (OP Routine) 11/02/2024 2:52 PM CDT Encounter for screening for osteoporosis SCREENING MAMMOGRAM BILATERAL W BOYD Schedule Routine, Read Routine (OP Routine) 03/12/2024 3:06 PM CDT Routine gynecological examination Encounter for screening mammogram for malignant neoplasm of breast THINPREP IMAGING PAP AND HPV MRNA E6/E7 REFLEX HPV 16,18/45 Routine 12/05/2023 10:40 AM CDT Routine gynecological examination from Last 3 Months or Most Recently Relevant to Health Maintenance Results * Dexa Axial Skeleton Bone Density 1 or 2 Site (11/02/2024 2:52 PM CDT) Anatomical Region Laterality Modality Body N/A Other 11/03/2024 7:15 AM CDT Narrative 11/03/2024 7:15 AM CDT EXAM DESCRIPTION: DEXA AXIAL SKELETON BONE DENSITY 1 OR MORE SITES REASON FOR STUDY: 54 y/o year old F with given history of: encounter for screening for osteoporosis Osteoporosis screening 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 CLINICAL INFORMATION: Current height: 61 inches Maximum height: 61.5 inches Weight: 148 pounds Risk factors: Postmenopausal COMPARISON: None available FINDINGS: AP LUMBAR SPINE L1-L4: Total BMD is 1.237 g/cm2 T-score is 1.7 LEFT HIP: Total BMD is 0.902 g/cm2 T-score is -0.3 Femoral neck BMD is 0.801 g/cm2 T-score is -0.4 FRAX: FRAX not reported due to T-scores of hip, femoral neck and/or spine being at or above -1.0 (Normal). IMPRESSION: Normal bone mass. REFERENCE: Bone mineral density: T-Score: Normal (T-score above or = -1.0) Low bone mass (T-score between -1.0 and -2.5) replaces the previously used term osteopenia Osteoporosis (T-score = or below -2.5) Z-Score: Within the expected range for age (Z-score above -2.0) Below the expected range for age (Z-score is -2.0 or below) Please see below follow up recommendations. Medical evaluation for secondary causes of low bone mineral density may be appropriate. FRAX is a World Health Organization validated fracture risk assessment tool that calculates a person's 10 year probability of a major osteoporosis related fracture and hip fracture. According to the National Osteoporosis Foundation guidelines, postmenopausal women and men age 50 or older with low bone mass and a 10 year probability of a major osteoporosis related fracture = or greater than 20% or a 10 year probability of a hip fracture = or greater than 3% should be considered for pharmacological treatment for the prevention of osteoporosis. For further information, including treatment recommendations, please refer to the 2019 ISCD Official Positions (http://www.iscd.org) and the NOF's Clinician's Guide to Prevention and Treatment of Osteoporosis (http://www.nof.org/professionals/clinical-guidelines) THIS IS AN ELECTRONICALLY VERIFIED FINAL REPORT 11/03/2024 7:15 AM - Electronically signed by Jacques Martinez M.D. 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 CLINICAL INFORMATION: Current height: 61 inches Maximum height: 61.5 inches Weight: 148 pounds Risk factors: Postmenopausal COMPARISON: None available FINDINGS: AP LUMBAR SPINE L1-L4: Total BMD is 1.237 g/cm2 T-score is 1.7 LEFT HIP: Total BMD is 0.902 g/cm2 T-score is -0.3 Femoral neck BMD is 0.801 g/cm2 T-score is -0.4 FRAX: FRAX not reported due to T-scores of hip, femoral neck and/or spine beingat or above -1.0 (Normal). IMPRESSION: Normal bone mass. REFERENCE: Bone mineral density: T-Score: Normal (T-score above or = -1.0) Low bone mass (T-score between -1.0 and -2.5) replaces thepreviously used term osteopenia Osteoporosis (T-score = or below -2.5) Z-Score: Within the expected range for age (Z-score above -2.0) Below the expected range for age (Z-score is -2.0 or below) Please see below follow up recommendations. Medical evaluation forsecondary causes of low bone mineral density may be appropriate. FRAX is a World Health Organization validated fracture risk assessmenttool that calculates a person's 10 year probability of a major osteoporosisrelated fracture and hip fracture. According to the National OsteoporosisFoundation guidelines, postmenopausal women and men age 50 or older with low bonemass and a 10 year probability of a major osteoporosis related fracture = or greater than 20% or a 10 year probability of a hip fracture = or greaterthan 3% should be considered for pharmacological treatment for the preventionof osteoporosis. For further information, including treatment recommendations, please referto the 2019 ISCD Official Positions (http://www.iscd.org) and the NOF's Clinician's Guide to Prevention and Treatment of Osteoporosis (http://www.nof.org/professionals/clinical-guidelines) THIS IS AN ELECTRONICALLY VERIFIED FINAL REPORT 11/03/2024 7:15 AM - Electronically signed by Jacques Martinez M.D. MF: AZUL Report ID: [id number] Reading Location: [id number] Delia Richardson AGRICULTURAL LOAN OFFICER IMG DXA PROCEDURES Final Result * Screening Mammogram Bilateral W Boyd (03/12/2024 3:06 PM CDT) Anatomical Region Laterality Modality Breast Bilateral Mammography 03/12/2024 4:06 PM CDT Impressions 03/12/2024 4:06 PM CDT There is no mammographic evidence of malignancy. A 1 year screening mammogram is recommended. BI-RADS: 1 - Negative. The patient has been or will be contacted. The patient will be entered into a reminder system with a target due date of 1 year for her next mammogram. Electronically signed by: Kulwant Hernández M.D. Narrative 03/12/2024 4:06 PM CDT EXAMINATION: SCREENING MAMMOGRAM BILATERAL W BOYD ORDERING HEALTHCARE PROVIDER: JOHN ROBERTSON HISTORY: Routine screening mammography. COMPARISON: 01/06/2023, 12/10/2021, 02/13/2020, 07/05/2017 TECHNIQUE: CC and MLO views of the bilateral breasts were obtained with digital technique using breast tomosynthesis with C view. Computer aided detection was utilized. FINDINGS: DENSITY: The tissue of the breasts is extremely dense, which lowers the sensitivity of mammography. BREASTS: There are no suspicious masses, suspicious calcifications, or other suspicious findings in either breast. There has been no suspicious interval change. John Robertson DO IMG MAMMO PROCEDURES Fi nal Result * ThinPrep(R) Imaging Pap and HPV mRNA E6/E7 Reflex HPV 16,18/45 (12/05/2023 10:40 AM CDT) CLINICAL INFORMATION: [facility] Comment:None given LMP [facility] Comment:NONE GIVEN Previous Pap [facility] Comment:NONE GIVEN Prev. Bx [facility] Comment:NONE GIVEN SOURCE: [facility] Comment:None given Pap, specimen adequacy [facility] Comment: Satisfactory for evaluation. Endocervical/transformation zone component present. Age and/or menstrual status not provided HPV interp [facility] Comment: Cytology Results: Negative for intraepithelial lesion or malignancy. COMMENTS [facility] Comment: This Pap test has been evaluated with computer assisted technology. Cloth Cutting Inspector [facility] Comment: CAK, CT(ASCP) CT Screening Location: [place] [address] [place] [address] Comment [facility] Comment: EXPLANATORY NOTE: The Pap is a screening test for cervical cancer. It is not a diagnostic test and is subject to false negative and false positive results. It is most reliable when a satisfactory sample, regularly obtained, is submitted with relevant clinical findings and history, and when the Pap result is evaluated along with historic and current clinical information. Human papillomavirus RNA, High Risk E6/E7 Not Detected Not Detected [facility] [place] Comment: Methodology: Patient Liaison-Mediated Amplification This assay detects E6/E7 viral messenger RNA (mRNA) from 14 high-risk HPV types (16,18,31,33,35,39,45,51,52,56,58,59,66,68). Cervical sources are required for HPV testing. If a vaginal source from a patient who has had a total hysterectomy with removal of cervix was submitted, please contact the testing laboratory for alternative testing options. For additional information, please refer to http://education.[employer]/faq/EDF232n3 (This link if provided for information/ educational purposes only.) Swab 12/05/2023 10:4 0 AM CDT 12/06/2023 12:20 AM CDT John Robertson DO LAB CYTOLOGY ORDERABLES Final Result [place] [address] [place] [address] [facility] [place] [address] [address] [phone] from Last 3 Months or Most Recently Relevant to Health Maintenance Insurance [facility]/PPO Address: [address] [place] [id number] [facility]/PPO Address: [address] [place] [phone] [facility]O Address: [address] [address] [facility]O Address: [address] [place] [address] [facility] [employer] [facility]/PPO Address: [address] [place] [address] Advance Directives For more information, please contact: [phone] Documents on File Type Date Recorded Patient Gis Administrator Expl anation ADVANCE DIRECTIVE 02/06/2018 POWER OF A TTORNEY ADVANCE DIRECTIVE 02/06/2018 POWER OF A TTORNEY-MEDICAL * Full Code (Latest Code Status on File) Date Activated Date Inactivated Comments 05/18/2023 12:32 AM 05/21/2023 10:31 PM Care Teams General Contractor Relationship Specialty Start Date End Date Delia Lu NP [address] [place] [facility] [address] [place] [address] PCP - General Family Medicine 05/18/23 Chong Beard MD [address] [place] [address] [address] [place] [address] Referring Physician Cardiovascular Disease 02/06/18 [place] [address] [place] [address] Consulting Physician Obstetrics and Gynecology 02/06/18 [place] [address] [place] [address] Consulting Physician Gastroenterology 02/06/18 Michael Mercado DO [address] [facility] [place] [address] Referring Physician Optometry 02/06/18 Travon Gaines MD [address] [place] [id number] Referring Physician Dermatology 02/06/18 Lebron Irwin IV, MD [address] [place] [address] Surgeon Orthopedic Surgery 06/23/20
--- OUTSIDE RECORDS SUMMARY | 2024-12-03 01:50 | XMS_ITS | Encounter Summary ---
Author Organization [facility] Address [address] [place] [address] Care Team Providers Care Participant Administrator Name Role Phone Unavailable Primary Care Provider Unavailabl e Encounter Details Date Type Department Care Team (Late st Contact Info) Description 05/29/2024 Lab Requisition [facility] - DermPath Lab [address] [facility], [place] [address] Ericka Claire DO [address] [facility] 3 [place] [address] Social History Tobacco Use Types Packs/Day Years Used Date Smoking Tobacco: Never Assessed Comments Unknown Sex and Gender Information Value Date Recorded Sex Assigned at Not on file Legal Sex Female 11:17 AM PROMOS EXECUTIVE PRODUCER Gender Identity Not on file Sexual Orientation Not on file documented as of this encounter Plan of Treatment Not on file documented as of this encounter Procedures Procedure Name Priority Date/Time Associated Diagnosis Comments DERMATOPATHOLOGY Routine 05/29/2024 3:08 PM PROMOS EXECUTIVE PRODUCER documented in this encounter Results * DERMATOPATHOLOGY (05/29/2024 3:08 PM PROMOS EXECUTIVE PRODUCER) Case Report Dermatopathology Report Case: [id number] Authorizing Provider: Ericka Claire DO Collected: 05/29/2024 03:08 PM Ordering Location: [facility] - Received: 05/30/2024 01:33 PM DermPath Lab Pathologist: Nancy Hernandez MD Specimen: Skin, right lower forehead 12:18 PM PROMOS EXECUTIVE PRODUCER DERMATOPATHOLOGY LABORATORY Final Diagnosis Specimen A. SKIN, right lower forehead: HYPERPLASTIC (HYPERTROPHIC) ACTINIC KERATOSIS (L57.0) 12:18 PM PROMOS EXECUTIVE PRODUCER DERMATOPATHOLOGY LABORATORY at 1218 PROMOS EXECUTIVE PRODUCER Clinical History R/o NMSC 12:18 PM [facility] DERMATOPATHOLOGY LABORATORY Gross Description Specimen A: Received is one formalin filled container labeled with the patient's name and designated right lower forehead. The specimen consists of a shave biopsy measuring 4x3x1 mm. Jar 0. 12:18 PM [facility] DERMATOPATHOLOGY LABORATORY Microscopic Description Specimen A. SKIN, right lower forehead: There is hyperkeratosis alternating with parakeratosis. There is epidermal hyperplasia with disorderly maturation of keratinocytes with nuclear pleomorphism confined to the lower half of the epidermis. 12:18 PM [facility] DERMATOPATHOLOGY LABORATORY Disclaimer An external and internal positive and negative controls are appropriate for the histochemical, immunohistochemical and immunofluorescence stain(s) in this case (if any), except where stated explicitly. The performance characteristics of the stain(s) cited in this report were developed and its performance characteristic determined by the Dermatopathology Laboratory at [facility], directed by Dr. Clement Kasper. These tests need not be, and therefore are not, approved by the [place] Food and Drug Administration. The tests are used for clinical purposes. Billing Codes Specimen Charges Stain Charges 86334 1 4 12:18 PM [facility] DERMATOPATHOLOGY LABORATORY Embedded Images 12:18 PM [facility] DERMATOPATHOLOGY LABORATORY Pathology/Cytolo gy TISSUE SPECIMEN FROM SKIN / Unknown 05/29/2024 3:08 PM PROMOS EXECUTIVE PRODUCER 05/30/2024 1:33 PM PROMOS EXECUTIVE PRODUCER us Ericka Claire DO LAB - PATHOLOGY/CYTOLOGY ORDERABLES Final Result DERMATOPATHOLOGY LABORATORY [facility] - Department of Dermatology [address], [address] [phone] documented in this encounter Visit Diagnoses Not on filedocumented in this encounter
--- OUTSIDE RECORDS SUMMARY | 2024-12-03 01:50 | XMS_ITS | Referral Summary ---
Author Organization [facility] [address] [facility] lt Address [address] [place] [address] Care Team Providers Care Medical Care Manager Name Role Phone Chong Beard MD Unavailable [phone] John Robertson DO Unavailable [phone] Mamie Broussard MD Unavailable [phone] Michael Mercado DO Unavailable [phone] Travon Gaines MD Unavailable Alida HOPKINS MD, Lebron Patino Unavailable Delia Lu NP Primary Care Provider [phone] Encounters Date Type Department Care Team Description 11/05/2024 3:30 PM CDT Office Visit [facility] [address] [address] John Robertson DO Hormone replacement therapy (Primary Dx); Vaginal dryness 11/02/[address] [address] Kenia Grayson RT 11/02/2024 2:34 PM CDT - 11/02/2024 11:59 PM CDT Hospital Encounter [address] [address] Encounter for screening for osteoporosis Discharge Disposition: Discharge to home or self care from Last 3 Months Allergies No known active allergies Medications cholecalciferol [...] hours as needed for pain 15 tablet 4 Active Additional Information Patient not taking.Reported on [...] 05/20/2023 Assessment & Plan (05/20/2023 5:29 PM BELTING CUTTER): -Recent heavy menses from fibroids -now s/p [...] Palpitations Assessment & Plan (05/21/2023 3:24 PM BELTING CUTTER): Presents with about a month of progressively [...] far is negative, would scan for paraganglioma ([id number] PET/CT) outpt. -24h urine collection for 5-HIAA [...] no diary accompanying this study. Dictated by: Barbara CheungA.CShadiaCShadia 08/22/14 Resolved Problems Problem Noted Date Diagnosed Date Resolved Date Hematuria 06/25/2020 11/11/2021 Assessment & Plan (06/26/2020 7:45 AM BELTING CUTTER): Of unclear etiology as based on UA patient does not have UTI. Concern for possible renal stones, see below. If no stones identified will most likely need CT vs referral to urology for further evaluation and treatment. 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 MF: AZUL Report ID: [id number] Reading Location: [place] [address] Delia Richardson NP IM DXA PROCEDURES Final Result * Screening Mammogram [...] has been no suspicious interval change. John Penale Ailyn DO IMG MAMMO PROCEDURES Fi nal Result * ThinPrep(R) Imaging Pap and HPV mRNA E6/E7 Reflex HPV 16,18/45 (12/05/2023 10:40 AM CDT) CLINICAL INFORMATION: [facility] Comment:None given LMP [facility] Comment:NONE GIVEN Previous Pap [facility] Comment:NONE GIVEN Prev. Bx [facility] Comment:NONE GIVEN SOURCE: [facility] Comment:None given Pap, specimen adequacy [facility] Comment: Satisfactory for evaluation. Endocervical/transformation zone component present. Age and/or menstrual status not provided HPV interp [facility] Comment: Cytology Results: Negative for intraepithelial lesion or malignancy. COMMENTS [facility] Comment: This Pap test has been evaluated with computer assisted technology. Agricultural Economist [facility] Comment: CAK, CT(ASCP) CT Screening Location: [place] [address] [address] , [place] [address] Comment [facility] Comment: EXPLANATORY NOTE: The Pap is a [...] High Risk E6/E7 Not Detected Not Detected [facility] Comment: Methodology: General Accountant-Mediated Amplification This assay detects E6/E7 viral messenger RNA (mRNA) from 14 high-risk HPV types (16,18,31,33,35,39,45,51,52,56,58,59,66,68). Cervical sources are required for HPV testing. If a vaginal source from a patient who has had a total hysterectomy with removal of cervix was submitted, please contact the testing laboratory for alternative testing options. For additional information, please refer to http://education.Volpit/faq/JKD514l1 (This link if provided for information/ educational purposes only.) Swab 12/05/2023 10:4 0 AM CDT 12/06/2023 12:20 AM CDT us John Robertson DO LAB CYTOLOGY ORDERABLES Final Result [facility] [address] [address] [employer] [address] [place] [address] from Last 3 Months or Most Recently Relevant to Health Maintenance Insurance [facility] CHOICE PLUS [facility] CHOICE PLUS Advance Directives For more information, please contact: [phone] Documents on File Type Date 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 ADVANCE DIRECTIVE 02/06/2018 POWER OF A TTORNEY ADVANCE DIRECTIVE 02/06/2018 POWER OF A TTORNEY-MEDICAL * Full Code (Latest Code Status on File) Date Activated Date Inactivated Comments 05/18/2023 12:32 AM 05/21/2023 10:31 PM Care Teams Medical Care Manager Relationship Specialty Start Date End Date Delia Lu NP [address] [place] [address] [address] MOR[address] [address] PCP - General Family Medicine 05/18/23 Chong Beard MD [address] [place] [address] [address] Referring Physician Cardiovascular Disease 02/06/18 John Robertson DO [address] [place] [address] Consulting Physician Obstetrics and Gynecology 02/06/18 Mamie Broussard MD [address] [place] [address] Consulting Physician Gastroenterology 02/06/18 Michael Mercado DO [address] [place] [address] Referring Physician Optometry 02/06/18 Travon Gaines MD [address] [place] [address] Referring Physician Dermatology 02/06/18 Lebron Irwin IV, MD [address] [address] Surgeon Orthopedic Surgery 06/23/20
--- OUTSIDE RECORDS SUMMARY | 2024-12-03 01:50 | XMS_ITS | Encounter Summary ---
Author Organization [facility] Address [address] [place] [address] Care Team Providers Care Dry Cleaning Checker Name Role Phone Unavailable Primary Care Provider Unavailabl e Encounter Details Date Type Department Care Team (Late st Contact Info) Description 12/08/2023 Lab Requisition [facility] Physician [facility] - DermPath Lab [address] 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 Gender Identity Not on file Sexual Orientation Not on file documented as of this encounter Plan of Treatment Not on file documented as of this encounter Procedures Procedure Name Priority Date/Time Associated Diagnosis Comments DERMATOPATHOLOGY Routine 12/08/2023 9:28 AM CDT documented in this encounter Results * DERMATOPATHOLOGY (12/08/2023 9:28 AM CDT) Case Report Dermatopathology Report Case: [id number] Authorizing Provider: Linda Dodson MD Collected: 12/08/2023 09:28 AM Ordering Location: [facility] Physician [facility] - Received: 12/09/2023 07:40 AM DermPath Lab Pathologist: Ermelinda Schulz MD Specimen: Skin, left glabella 4 3:57 PM CDT DERMATOPATHOLOGY LABORATORY Final Diagnosis Specimen A. SKIN, left glabella: EPIDERMOID CYST (L72.0) (see microscopic description) 4 3:57 PM CDT DERMATOPATHOLOGY LABORATORY at 1557 CDT Clinical History Milia vs AF r/o BCC, irritated. 3:57 PM CDT DERMATOPATHOLOGY LABORATORY Gross Description Specimen A: Received is one formalin filled container labeled with the patient's name and designated left glabella. The specimen consists of a shave biopsy measuring 5x2x1 mm. Jar 0. 3:57 PM CDT DERMATOPATHOLOGY LABORATORY Microscopic Description Specimen A. SKIN, left glabella: Within the dermis, there is a space lined by epithelium that resembles normal epidermis and the infundibular portion of the hair follicle. Additional deeper sections were obtained and reviewed. 3:57 PM CDT DERMATOPATHOLOGY LABORATORY Disclaimer An external and internal positive and negative controls are appropriate for the histochemical, immunohistochemical and immunofluorescence stain(s) in this case (if any), except where stated explicitly. The performance characteristics of the stain(s) cited in this report were developed and its performance characteristic determined by the Dermatopathology Laboratory at [facility], directed by Dr. Clement Kasper. These tests need not be, and therefore are not, approved by the [place] Food and Drug Administration. The tests are used for clinical purposes. Billing Codes Specimen Charges Stain Charges 45428 1 3:57 PM CDT DERMATOPATHOLOGY LABORATORY Embedded Images 3:57 PM CDT DERMATOPATHOLOGY LABORATORY Pathology/Cytolo gy TISSUE SPECIMEN FROM SKIN / Unknown 12/08/2023 9:28 AM CDT 12/09/2023 7:40 AM CDT Linda Dodson MD LAB - PATHOLOGY/CYTOLOGY OR DERABLES Final Result DERMATOPATHOLOGY LABORATORY [facility] - Department of Dermatology [address] [phone] documented in this encounter Visit Diagnoses Not on filedocumented in this encounter
[2024-12-03 06:10] VITALS: BP 126/77; PULSE 77; RESP 16; TEMP 36.3; O2SAT 100; BMI 25.0
[2024-12-03] MEDS: LACTATED RINGERS 1,000 ML 150 ML IV CONT (06:32)
--- NOTE | 2024-12-03 07:07 | WPDANESEPPF ---
Anes - Initial Pre Proc Eval Procedure: Operation Date: 12/03/24 07:30 Proposed Procedures p Esophagogastroduodenoscopy&Screen Colon - Eduardo Pulido MD Date/Time: 12/03/24 07:07 Surgeon: Eduardo Pulido MD Pre Op Diagnosis: Neoplasm screening, Heartburn Patient Data Age: 54 Gender: F Height: 1.55 m Weight: 60.1 kg Last Vital Signs Temp 36.3 C L 12/03/24 06:10 Pulse 77 12/03/24 06:10 Resp 16 12/03/24 06:10 BP 126/77 12/03/24 06:10 Pulse Ox 100 12/03/24 06:10 O2 Del Method Room Air 12/03/24 06:10 Allergies Allergy/AdvReac Type Severity Reaction Status Date / Time No Known Allergies Allergy Verified 12/03/24 06:16 Home Medications ?Medication ?Instructions ?Recorded ?Confirmed ?Type estradiol 0.1 mg/24 hr semiweekly 1 patch topical .twice a week 11/23/24 11/23/24 History transdermal patch famotidine 20 mg tablet (Acid 20 mg PO DAILY PRN indigestion 11/23/24 11/23/24 History Rig Superintendent (famotidine)) progesterone micronized 100 mg 100 mg PO DAILY 11/23/24 12/03/24 History capsule Patient hx anesthesia problems: none Family hx anesthesia problems: none Results Review: All pre-operative results and documents have been reviewed as part of the pre-operative evaluation. [facility] Past Medical History Medical History (Updated 12/03/24 @ 07:07 by Shyam Orozco MD) Hyperlipidemia Surgical History Surgical History (Updated 12/03/24 @ 07:10 by Shyam Orozco MD) H/O: hysterectomy H/O colonoscopy Social History Social History Smoking status: Never smoker Living arrangements: with family Anes - Eval Final PreProcedure Day of Procedure 12/03/24 07:07 Patient weight: normal Heart: regular rate and rhythm Lungs: clear to auscultation Airway: Mallampati scale class II Neurological: alert and oriented Last oral intake: >/= 8 hours ASA classification: II Emergent: no Anesthetic plan: proceed Anesthesia type and monitoring: general GIVS and standard monitoring Results Review: All pre-operative results and documents have been reviewed as part of the pre-operative evaluation. Informed Consent: The patient's anesthetic plan and its attendant risks and benefits were discussed with the patient/family/POA. Questions were solicited and answers provided to the satisfaction of the patient/family/POA.
--- NOTE | 2024-12-03 07:31 | P.HP_ITS ---
History of Present Illness History of Present Illness Consent: Risks, benefits, and alternatives have been discussed and questions answered. Patient agrees to proceed with procedure. Chief complaint: Neoplasm screening, Heartburn Narrative: Estela Cabrera is a 54 year old female with gerd using either pepcid or omeprazole as needed, also screening colonoscopy (had one years ago) Review of Systems Review of Systems: All systems reviewed & are unremarkable except as noted in HPI and below PMFSH Past Medical History Medical History (Updated 12/03/24 @ 07:32 by Eduardo Pulido MD) Colon cancer screening GERD (gastroesophageal reflux disease) Hyperlipidemia Surgical History Surgical History (Updated 12/03/24 @ 07:10 by Shyam Orozco MD) H/O: hysterectomy H/O colonoscopy Social History Social History Smoking status: Never smoker Living arrangements: with family Meds Home Medications and Allergies Home Medications ?Medication ?Instructions ?Recorded ?Confirmed ?Type estradiol 0.1 mg/24 hr semiweekly 1 patch topical .twice a week 11/23/24 11/23/24 History transdermal patch famotidine 20 mg tablet (Acid 20 mg PO DAILY PRN indigestion 11/23/24 11/23/24 History Supervisor Lending Activities (famotidine)) progesterone micronized 100 mg 100 mg PO DAILY 11/23/24 12/03/24 History capsule Allergies Allergy/AdvReac Type Severity Reaction Status Date / Time No Known Allergies Allergy Verified 12/03/24 06:16 Vital Signs Vital Signs - 24 hr 12/03/24 06:10 Temperature 97.4 F L Pulse Rate 77 Respiratory Rate 16 Blood Pressure 126/77 Pulse Oximetry 100 Oxygen Delivery Room Air Exam Const: General: comfortable and no acute distress HENMT: Face/Nose/Sinus: Normal nares present Eyes: General: appearance normal, both eyes and all related structures Neck: Neck: no JVD Resp: Auscultation: clear to auscultation bilaterally Cardio: Rate: regular rate Rhythm: regular rhythm GI: Inspection: non-distended GI Palp: Yes Soft to palpation Skin: General skin exam: normal color Neuro: Speech: normal speech Extrem: General: normal to inspection Psych: Mental Status: mental status grossly normal Assessment and Plan Assessment and plan (1) GERD (gastroesophageal reflux disease): Code(s): K21.9 - Gastro-esophageal reflux disease without esophagitis Status: Acute Assessment and Plan: egd (2) Colon cancer screening: Code(s): Z12.11 - Encounter for screening for malignant neoplasm of colon Status: Acute Assessment and Plan: colonoscopy
[2024-12-03] MEDS: BENZOCAINE (*SP) 60 ML SPRAY CAN (HURRICAINE) 1 SPRAY MUCOUS MEM (07:35)
--- NOTE | 2024-12-03 07:42 | SUR.OPER ---
EGD ended at 736, colon began at 07.
--- NOTE | 2024-12-03 07:44 | S_PTH ---
PATIENT: Estela Cabrera LOC: [facility] Malik#:[id number] AGE/SX: 54/F ROOM: RE12/03/[address]: Eduardo Pulido MD : 1970 BED: DIS: 12/03/2024 SPEC #: [id number] RECD: 12/03/24 10:20 STATUS: ROX RENaa #: [id number] LEYDI: 12/03/24 07:[address]: Eduardo Pulido DEPT: [facility] Surgical RECD BY: Siobhan Ortiz Tissues: A - Gastric Biopsy Procedures: Hematoxylin and Eosin Stain Gross and Microscopic Level 4
[2024-12-03 07:52] VITALS: BP 96/58; PULSE 67; RESP 18; O2SAT 100
[2024-12-03 08:02] VITALS: BP 96/59; PULSE 68; RESP 21; O2SAT 100
[2024-12-03 08:12] VITALS: BP 107/66; PULSE 69; RESP 18; O2SAT 100
== END 2024-12-03 08:22 | disposition home or self-care (01) ==
PROVIDERS: Visit Provider Internal Medicine Gastroenterology
PROC: 0DJ08ZZ Inspection of Upper Intestinal Tract, Via Natural or Artificial Opening Endoscopic (ICD-10-PCS; CPT 45378; principal; 2024-12-03 07:30)
DX: Z12.11 Encounter for screening for malignant neoplasm of colon (principal); K64.8 Other hemorrhoids; K21.9 Gastro-esophageal reflux disease without esophagitis
CPT/HCPCS: 45378; 43239; 88305; J2003; J2704; J7120